=== PATIENT | male | born 1965 | race Caucasian/White ===

== ENCOUNTER 2018-01-05 21:52 | Inpatient (IN) ==
--- NOTE | 2018-01-05 22:14 | CT ---
EXAM DATE: 01/05/2018 10:09 PM EST AGE/SEX: 52 years / Male INDICATIONS: Stroke Alert. CLINICAL DATA: This is the patient's initial encounter. Patient reports that signs and symptoms have been present for 1 day and indicates a pain score of 0/10. MEDICAL/SURGICAL HISTORY: Cerebrovascular disease. Non-responsive. RADIATION DOSE: 56.55 CTDI (mGy) COMPARISON: No prior exams available for comparison. TECHNIQUE: CT of the head without contrast. Using automated exposure control and adjustment of the mA and/or kV according to patient size, radiation dose was kept as low as reasonably achievable to ob tain optimal diagnostic quality images. DICOM format image data is available electronically for revi ew and comparison. FINDINGS: Cerebrum: The ventricles are normal for age. No evidence of midline shift, mass lesion, hemorrhage or acute infarction. No extraaxial fluid collections are seen. Posterior Fossa: The cerebellum and brainstem are intact. The 4th ventricle is midline. The cerebe llopontine angle is unremarkable. Extracranial: The visualized portion of the orbits is intact. Skull: The calvaria is intact. No evidence of skull fracture. CONCLUSION: Negative stroke alert noncontrast head CT. Report called to Dr. Kan at 10:10 PM. . Electronically signed by: Justin Rosenthal MD 01/05/2018 10:12 PM EST
[2018-01-05] MEDS ORDERED: Alteplase Bolus 9 MG/9 ML Syringe IV.PUSH ONE (22:27)
[2018-01-05] MEDS ORDERED: Alteplase Drip 81 MG in Syringe/Bag 1 EACH IV.SIG ONE (22:27)
[2018-01-05] MEDS ORDERED: Sodium Chlor 0.9% Inj 100 ML IV.SIG ONE ×2 (22:31)
[2018-01-05] MEDS ORDERED: Labetalol HCl Inj 100 MG/20 ML Vial IV.PUSH PRN (22:44)
[2018-01-05] MEDS: Sod Chloride 0.9% Inj 1,000 ML IV.CONT SCH (22:45)
[2018-01-05 22:46] LABS: Baso # (Auto) 0.1 th/mm3 (0.0-0.2); Eos # (Auto) 0.3 th/mm3 (0.0-0.4); Eos % (Auto) 3.9 % (0.0-4.0); Hematocrit 50.1 % (39.0-51.0); Hemoglobin 16.8 gm/dL (13.0-17.0); Lymph # (Auto) 2.6 th/mm3 (1.0-4.8); Lymph % (Auto) 34.7 % (9.0-44.0); Mean Corpuscular HGB Conc 33.5 % (32.0-36.0); Mean Corpuscular Hemoglobin 31.1 pg (27.0-34.0); Mean Corpuscular Volume 92.7 fL (80.0-100.0); Mean Platelet Volume 9.1 fL (7.0-11.0); Mono # (Auto) 0.7 th/mm3 (0.0-0.9); Neut # (Auto) 3.9 th/mm3 (1.8-7.7); Neut % (Auto) 51.4 % (16.0-70.0); Platelet Count 182 th/mm3 (150-450); Red Blood Count 5.41 mil/mm3 (4.50-5.90); Red Cell Distribution Width 12.2 % (11.6-17.2); White Blood Count 7.6 th/mm3 (4.0-11.0)
[2018-01-05] MEDS ORDERED: Potassium Chlor 40 mEq Premix 40 MEQ/100 ML PIGGYBACK IV.SIG PRN ×2 (22:47)
[2018-01-05] MEDS ORDERED: Sodium Phosphate Inj 30 MMOL in Sodium Chlor 0.9% Inj 250 ML IV.SIG PRN (22:47)
[2018-01-05] MEDS ORDERED: Potassium Chlor 20 mEq Premix 20 MEQ/100 ML PIGGYBACK IV.SIG PRN ×2 (22:47)
[2018-01-05] MEDS ORDERED: Magnesium Sulfate Inj 2 GM in Sodium Chlor 0.9% Inj 96 ML IV.SIG PRN (22:47)
[2018-01-05] MEDS ORDERED: Potassium Phosphate 500 MG Soluble Tablet PO PRN ×2 (22:47)
[2018-01-05] MEDS ORDERED: Dextrose 50% in Water 50 ML Vial IV.PUSH PRN (22:47)
[2018-01-05] MEDS ORDERED: Bisacodyl 10 MG Supp RECTAL PRN (22:47)
[2018-01-05] MEDS ORDERED: Potassium Chloride 25 MEQ Effervescent Tablet PO PRN (22:47)
[2018-01-05] MEDS ORDERED: Potassium Phosphate Inj 30 MMOL in Sodium Chlor 0.9% Inj 250 ML IV.SIG PRN (22:47)
[2018-01-05] MEDS ORDERED: Magnesium Oxide 400 MG Tablet PO PRN (22:47)
[2018-01-05] MEDS ORDERED: Magnesium Sulfate Inj 4 GM in Sodium Chlor 0.9% Inj 92 ML IV.SIG PRN (22:47)
--- NOTE | 2018-01-05 22:47 | CT ---
EXAM DATE: 01/05/2018 10:39 PM EST AGE/SEX: 52 years / Male INDICATIONS: Stroke Alert. CLINICAL DATA: This is the patient's initial encounter. Patient reports that signs and symptoms have been present for 1 day and indicates a pain score of 0/10. MEDICAL/SURGICAL HISTORY: Cerebrovascular disease. Non-responsive. RADIATION DOSE: 42.29 CTDI (mGy) COMPARISON: No prior exams available for comparison. TECHNIQUE: Volumetric scanning was performed using a multi-row detector CT scanner during bolus infu yuniel of 73 ml Visipaque 320 (iodixanol) nonionic water-soluble contrast as a cumulative dose for mul tiple exams. The data was post processed with a variety of visualization algorithms including full volume maximum intensity projection, multi-planar sliding thin slab reformation, curved planar reform ation, and surface rendering techniques. Using automated exposure control and adjustment of the mA a nd/or kV according to patient size, radiation dose was kept as low as reasonably achievable to obtain optimal diagnostic quality images. DICOM format image data is available electronically for review a nd comparison. FINDINGS: There is excellent visualization of the major intracranial arteries out to the second-order branch ve ssels. There is no evidence for aneurysm, acute vessel truncation or stenosis, and no evidence for v ascular malformation. The basilar artery appears of small caliber and probably congenital/development al. There are bilateral well-developed posterior communicating arteries. CONCLUSION: No acute abnormality of the intracranial arteries. . Electronically signed by: Justin Rosenthal MD 01/05/2018 10:46 PM EST
--- NOTE | 2018-01-05 22:48 | XR ---
EXAM DATE: 01/05/2018 10:44 PM EST AGE/SEX: 52 years / Male INDICATIONS: Stroke alert. CLINICAL DATA: This is the patient's initial encounter. Patient reports that signs and symptoms have been present for 1 day and indicates a pain score of Nonresponsive. MEDICAL/SURGICAL HISTORY: . Cerebrovascular disease. Non-responsive. COMPARISON: [facility], CHEST SINGLE AP, 12/26/2015. . FINDINGS: A single AP view of the chest demonstrates the lungs to be symmetrically aerated without evidence of mass, infiltrate or effusion. The cardiomediastinal contours are unremarkable. Osseous structures a re intact. CONCLUSION: No acute cardiopulmonary disease demonstrated. Electronically signed by: Justin Rosenthal MD 01/05/2018 10:46 PM EST
[2018-01-05 22:49] LABS: Chloride 105 meq/L (98-107); Potassium 3.7 meq/L (3.5-5.1); Sodium 139 meq/L (136-145)
[2018-01-05 22:52] LABS: Albumin 3.7 g/dL (3.4-5.0); Anion Gap 8 meq/L (5-15); Calcium 8.8 mg/dL (8.5-10.1); Carbon Dioxide 26.1 meq/L (21.0-32.0); Glucose,Random 112 mg/dL (74-106)
[2018-01-05 22:53] LABS: Blood Urea Nitrogen 16 mg/dL (7-18)
[2018-01-05 22:55] LABS: Alanine Aminotransferase 21 U/L (12-78); Aspartate Aminotransferase 14 U/L (15-37)
[2018-01-05 22:56] LABS: Glomerular Filtration Rate 58 mL/min (>89)
[2018-01-05 22:57] LABS: Total Protein 7.2 g/dL (6.4-8.2)
[2018-01-05 22:58] LABS: Alkaline Phosphatase 26 U/L (45-117)
--- NOTE | 2018-01-05 22:58 | ED ---
HPI General Chief complaint: Stroke Alert Stated complaint: Stroke Time Seen by Provider: 01/05/18 21:57 Source: EMS Limitations: other History of Present Illness HPI narrative: 52yo M with lupus, ?parkinson's, CVA with left sided residual weakness here as stroke alert. As per , an hour prior to arrival, pt was normal. Pt has been feeling bad all day but yelled out her name and she ran to him in the shower and found that he was having difficulty speaking. Said he had left facial droop. Pt has weakness in bilateral extremities. Related Data Allergies Allergy/AdvReac Type Severity Reaction Status Date / Time azithromycin Allergy Severe HIVES/SYNCO Verified 01/05/18 22:44 PE blue dye Allergy Severe NAUSEA/VOMI Verified 01/05/18 22:44 TING ciprofloxacin Allergy Severe Anaphylaxis Verified 01/05/18 22:44 esomeprazole Allergy Severe Hives Verified 01/05/18 22:44 FD and C yellow no.6 (sunset Allergy Severe NAUSEA/VOMI Verified 01/05/18 22:44 yellow TING levofloxacin Allergy Severe Hives Verified 01/05/18 22:44 prochlorperazine Allergy Severe Anaphylaxis Verified 01/05/18 22:44 Review of Systems ROS: all other systems reviewed are negative [facility] Family History Family History Other Family history non-contributory Social History Social History Substance History: No History of Abuse Second Hand Smoke Exposure: Yes Smoking Status: Current every day smoker Tobacco Type: Cigarettes How Often Do You Have a Drink Containing Alcohol: Never Recent Travel in [facility] within the Last 8 Weeks: No Recent Out of Country Travel within the Last 8 Weeks: No Exam Narrative Exam Narrative: GENERAL: 52yo M in moderate distress. SKIN: Focused skin assessment warm/dry. HEAD: Atraumatic. Normocephalic. EYES: Pupils equal and round. No scleral icterus. No injection or drainage. ENT: No nasal bleeding or discharge. Mucous membranes pink and moist. NECK: Trachea midline. No JVD. CARDIOVASCULAR: Regular rate and rhythm. No murmur appreciated. RESPIRATORY: No accessory muscle use. Clear to auscultation. Breath sounds equal bilaterally. GASTROINTESTINAL: Abdomen soft, non-tender, nondistended. MUSCULOSKELETAL: No obvious deformities. No clubbing. No cyanosis. No edema. NEUROLOGICAL: Awake and alert. +Dysphasia and aphasia. Left side is still weaker than right. NIH stroke scale 13. Course Initial Documented Vital Signs Pulse Rate 82 01/05/18 21:57 Pulse Oximetry 97 01/05/18 21:57 Last Documented Vital Signs Temperature 98.0 F 01/06/18 03:00 Pulse Rate 60 01/06/18 04:00 Respiratory Rate 19 01/06/18 04:00 Blood Pressure 159/92 H 01/06/18 03:44 Pulse Oximetry 98 01/06/18 04:00 Critical Care Time Critical Care Time: Yes Total Critical Care Time: 40 Attestation: Aggregate critical care time was 40 minutes. Time to perform other separately billable procedures was not included in the critical care time. My time did not include minutes spent treating any other patients simultaneously or on activities that did not directly contribute to the patient's treatment. The services I provided to this patient were to treat and/or prevent clinically significant deterioration that could result in: cardiovascular collapse or . I provided critical care services requiring my management, as noted below: Chart data review, documentation time, medication orders and management, vital sign assessments/reviewing monitor data, ordering and reviewing lab tests, ordering and interpreting/reviewing x-rays and diagnostic studies, care of the patient and discussion of the patient with the admitting physicians. NIH Stroke Scale NIHSS Time Completed NIHSS Time Completed: 21:57 NIH Stroke Scale Level of Consciousness: 0-Alert Orientation Questions: 1-One task correct Responds to Commands: 0-Both tasks correct Gaze Eye Movement: 0-Horizontal movement WNL Visual Fernandez: 0-No visual field defect Facial Movement: 0-Normal Motor Functions Arm LEFT: 2-Falls before 10 seconds Motor Functions Arm RIGHT: 2-Falls before 10 seconds Motor Functions Leg LEFT: 2-Falls before 5 seconds Motor Functions Leg RIGHT: 1-Drift before 5 seconds Limb Ataxia: 1-Ataxia in one limb Sensory Loss: 0-No sensory loss Best Language: 2-Severe aphasia Articulation: 2-Severe dysarthria Extinction or Inattention Sensory: 0-Absent Total: 13 Medical Decision Making MDM Narrative Medical decision making narrative: 52yo M here as stroke alert. Pt with dysphagia and aphasia. NIH stroke 13 on arrival. Pt immediately transported to CT scan and CTA head and neck ordered as well. Dr. Valiente used teleneuro and evaluated patient. CT brain negative. TPA initiated. Discussed with Dr. Deras who is electrical engineering drafting officer and pt will be transferred to the [facility]. Labs reviewed, no leukocytosis. H/H normal. TSH normal. Troponin negative. BMP unremarkable. CTA neck showed no acute abnormalities. CTA head showed no acute abnormality. CXR negative. Pt reevaluated at bedside after TPA bolus and is doing well. Pt's speech is more clear now and able to speak in sentences. Still with left residual weakness but right sided weakness improved. Pt transferred to [facility] in stable condition. Medical Screen Exam Complete: Yes Emergency Medical Condition: Yes Differential Diagnosis Differential Diagnosis: CVA vs. anxiety Lab Data Result diagrams: 01/05/18 21:55 01/05/18 21:55 Lab Results 01/05/18 01/05/18 01/05/18 Range/Units 21:55 21:55 21:55 CBC w Diff Auto diff final WBC 7.6 (4.0-11.0) th/mm3 RBC 5.41 (4.50-5.90) mil/mm3 Hgb 16.8 (13.0-17.0) gm/dL Hct 50.1 (39.0-51.0) % MCV 92.7 (80.0-100.0) fL MCH 31.1 (27.0-34.0) pg MCHC 33.5 (32.0-36.0) % RDW 12.2 (11.6-17.2) % Plt Count 182 (150-450) th/mm3 MPV 9.1 (7.0-11.0) fL Neut % (Auto) 51.4 (16.0-70.0) % Lymph % (Auto) 34.7 (9.0-44.0) % [place] % (Auto) 9.0 H (0.0-8.0) % Eos % (Auto) 3.9 (0.0-4.0) % Baso % (Auto) 1.0 (0.0-2.0) % Neut # (Auto) 3.9 (1.8-7.7) th/mm3 Lymph # (Auto) 2.6 (1.0-4.8) th/mm3 [place] # (Auto) 0.7 (0.0-0.9) th/mm3 Eos # (Auto) 0.3 (0.0-0.4) th/mm3 Baso # (Auto) 0.1 (0.0-0.2) th/mm3 WBC Differential . Differential Comment . ESR (0-20) mm/hr PT 11.0 (9.8-11.6) sec INR 1.1 Ratio APTT 32.0 H (23.4-31.7) sec Sodium 139 (136-145) meq/L Potassium 3.7 (3.5-5.1) meq/L Chloride 105 (98-107) meq/L Carbon Dioxide 26.1 (21.0-32.0) meq/L Anion Gap 8 (5-15) meq/L BUN 16 (7-18) mg/dL Creatinine 1.30 (0.60-1.30) mg/dL Estimated GFR 58 L (>89) mL/min POC Glucose (68-110) mg/dl Random Glucose 112 H (74-106) mg/dL Calcium 8.8 (8.5-10.1) mg/dL Total Bilirubin 0.5 (0.2-1.0) mg/dL AST 14 L (15-37) U/L ALT 21 (12-78) U/L Alkaline Phosphatase 26 L (45-117) U/L Ammonia (11-32) mcmol/L Troponin I Less than 0.02 L (0.02-0.05) ng/mL Total Protein 7.2 (6.4-8.2) g/dL Albumin 3.7 (3.4-5.0) g/dL TSH (0.358-3.740) uIU/mL Urine Color (Yellw/Straw) Urine Clarity (Clear) Urine pH (5.0-8.5) Ur Specific [place] (1.002-1.035) Urine Protein (Neg-Trace) mg/dL Urine Glucose (UA) (Negative) mg/dL Urine Ketones (Negative) mg/dL Urine Occult Blood (Negative) Urine Nitrate (Negative) Urine Bilirubin (Negative) Urine Urobilinogen (Less than 2) mg/dL Ur Leukocyte Esterase (Negative) Urine RBC (0-3) /hpf Urine WBC (0-5) /hpf Ur Squamous Epith Cells (0-5) /hpf Amorphous Sediment (None) /hpf Micro UA Comment Ur Microscopic Review Urine Culture Comments Urine Opiates Screen (Neg) Ur Barbiturates Screen (Neg) Ur Amphetamines Screen (Neg) U Benzodiazepines Scrn (Neg) Urine Cocaine Screen (Neg) U Cannabinoids Screen (Neg) Blood Type Blood Type Recheck Antibody Screen 01/05/18 01/05/18 01/05/18 Range/Units 21:55 21:55 22:13 CBC w Diff WBC (4.0-11.0) th/mm3 RBC (4.50-5.90) mil/mm3 Hgb (13.0-17.0) gm/dL Hct (39.0-51.0) % MCV (80.0-100.0) fL MCH (27.0-34.0) pg MCHC (32.0-36.0) % RDW (11.6-17.2) % Plt Count (150-450) th/mm3 MPV (7.0-11.0) fL Neut % (Auto) (16.0-70.0) % Lymph % (Auto) (9.0-44.0) % [place] % (Auto) (0.0-8.0) % Eos % (Auto) (0.0-4.0) % Baso % (Auto) (0.0-2.0) % Neut # (Auto) (1.8-7.7) th/mm3 Lymph # (Auto) (1.0-4.8) th/mm3 [place] # (Auto) (0.0-0.9) th/mm3 Eos # (Auto) (0.0-0.4) th/mm3 Baso # (Auto) (0.0-0.2) th/mm3 WBC Differential Differential Comment ESR 3 (0-20) mm/hr PT (9.8-11.6) sec INR Ratio APTT (23.4-31.7) sec Sodium (136-145) meq/L Potassium (3.5-5.1) meq/L Chloride (98-107) meq/L Carbon Dioxide (21.0-32.0) meq/L Anion Gap (5-15) meq/L BUN (7-18) mg/dL Creatinine (0.60-1.30) mg/dL Estimated GFR (>89) mL/min POC Glucose (68-110) mg/dl Random Glucose (74-106) mg/dL Calcium (8.5-10.1) mg/dL Total Bilirubin (0.2-1.0) mg/dL AST (15-37) U/L ALT (12-78) U/L Alkaline Phosphatase (45-117) U/L Ammonia (11-32) mcmol/L Troponin I (0.02-0.05) ng/mL Total Protein (6.4-8.2) g/dL Albumin (3.4-5.0) g/dL TSH 0.760 (0.358-3.740) uIU/mL Urine Color (Yellw/Straw) Urine Clarity (Clear) Urine pH (5.0-8.5) Ur Specific [place] (1.002-1.035) Urine Protein (Neg-Trace) mg/dL Urine Glucose (UA) (Negative) mg/dL Urine Ketones (Negative) mg/dL Urine Occult Blood (Negative) Urine Nitrate (Negative) Urine Bilirubin (Negative) Urine Urobilinogen (Less than 2) mg/dL Ur Leukocyte Esterase (Negative) Urine RBC (0-3) /hpf Urine WBC (0-5) /hpf Ur Squamous Epith Cells (0-5) /hpf Amorphous Sediment (None) /hpf Micro UA Comment Ur Microscopic Review Urine Culture Comments Urine Opiates Screen (Neg) Ur Barbiturates Screen (Neg) Ur Amphetamines Screen (Neg) U Benzodiazepines Scrn (Neg) Urine Cocaine Screen (Neg) U Cannabinoids Screen (Neg) Blood Type A Positive Blood Type Recheck Required Antibody Screen Negative 01/05/18 01/05/18 01/06/18 Range/Units 22:37 23:05 00:50 CBC w Diff WBC (4.0-11.0) th/mm3 RBC (4.50-5.90) mil/mm3 Hgb (13.0-17.0) gm/dL Hct (39.0-51.0) % MCV (80.0-100.0) fL MCH (27.0-34.0) pg MCHC (32.0-36.0) % RDW (11.6-17.2) % Plt Count (150-450) th/mm3 MPV (7.0-11.0) fL Neut % (Auto) (16.0-70.0) % Lymph % (Auto) (9.0-44.0) % [place] % (Auto) (0.0-8.0) % Eos % (Auto) (0.0-4.0) % Baso % (Auto) (0.0-2.0) % Neut # (Auto) (1.8-7.7) th/mm3 Lymph # (Auto) (1.0-4.8) th/mm3 [place] # (Auto) (0.0-0.9) th/mm3 Eos # (Auto) (0.0-0.4) th/mm3 Baso # (Auto) (0.0-0.2) th/mm3 WBC Differential Differential Comment ESR (0-20) mm/hr PT (9.8-11.6) sec INR Ratio APTT (23.4-31.7) sec Sodium (136-145) meq/L Potassium (3.5-5.1) meq/L Chloride (98-107) meq/L Carbon Dioxide (21.0-32.0) meq/L Anion Gap (5-15) meq/L BUN (7-18) mg/dL Creatinine (0.60-1.30) mg/dL Estimated GFR (>89) mL/min POC Glucose 96 (68-110) mg/dl Random Glucose (74-106) mg/dL Calcium (8.5-10.1) mg/dL Total Bilirubin (0.2-1.0) mg/dL AST (15-37) U/L ALT (12-78) U/L Alkaline Phosphatase (45-117) U/L Ammonia 36 H (11-32) mcmol/L Troponin I (0.02-0.05) ng/mL Total Protein (6.4-8.2) g/dL Albumin (3.4-5.0) g/dL TSH (0.358-3.740) uIU/mL Urine Color (Yellw/Straw) Urine Clarity (Clear) Urine pH (5.0-8.5) Ur Specific [place] (1.002-1.035) Urine Protein (Neg-Trace) mg/dL Urine Glucose (UA) (Negative) mg/dL Urine Ketones (Negative) mg/dL Urine Occult Blood (Negative) Urine Nitrate (Negative) Urine Bilirubin (Negative) Urine Urobilinogen (Less than 2) mg/dL Ur Leukocyte Esterase (Negative) Urine RBC (0-3) /hpf Urine WBC (0-5) /hpf Ur Squamous Epith Cells (0-5) /hpf Amorphous Sediment (None) /hpf Micro UA Comment Ur Microscopic Review Urine Culture Comments Urine Opiates Screen Neg (Neg) Ur Barbiturates Screen Neg (Neg) Ur Amphetamines Screen Neg (Neg) U Benzodiazepines Scrn Pos H (Neg) Urine Cocaine Screen Neg (Neg) U Cannabinoids Screen Neg (Neg) Blood Type Blood Type Recheck Antibody Screen 01/06/18 Range/Units 00:50 CBC w Diff WBC (4.0-11.0) th/mm3 RBC (4.50-5.90) mil/mm3 Hgb (13.0-17.0) gm/dL Hct (39.0-51.0) % MCV (80.0-100.0) fL MCH (27.0-34.0) pg MCHC (32.0-36.0) % RDW (11.6-17.2) % Plt Count (150-450) th/mm3 MPV (7.0-11.0) fL Neut % (Auto) (16.0-70.0) % Lymph % (Auto) (9.0-44.0) % [place] % (Auto) (0.0-8.0) % Eos % (Auto) (0.0-4.0) % Baso % (Auto) (0.0-2.0) % Neut # (Auto) (1.8-7.7) th/mm3 Lymph # (Auto) (1.0-4.8) th/mm3 [place] # (Auto) (0.0-0.9) th/mm3 Eos # (Auto) (0.0-0.4) th/mm3 Baso # (Auto) (0.0-0.2) th/mm3 WBC Differential Differential Comment ESR (0-20) mm/hr PT (9.8-11.6) sec INR Ratio APTT (23.4-31.7) sec Sodium (136-145) meq/L Potassium (3.5-5.1) meq/L Chloride (98-107) meq/L Carbon Dioxide (21.0-32.0) meq/L Anion Gap (5-15) meq/L BUN (7-18) mg/dL Creatinine (0.60-1.30) mg/dL Estimated GFR (>89) mL/min POC Glucose (68-110) mg/dl Random Glucose (74-106) mg/dL Calcium (8.5-10.1) mg/dL Total Bilirubin (0.2-1.0) mg/dL AST (15-37) U/L ALT (12-78) U/L Alkaline Phosphatase (45-117) U/L Ammonia (11-32) mcmol/L Troponin I (0.02-0.05) ng/mL Total Protein (6.4-8.2) g/dL Albumin (3.4-5.0) g/dL TSH (0.358-3.740) uIU/mL Urine Color Yellow (Yellw/Straw) Urine Clarity Slightly cloudy (Clear) Urine pH 8.0 (5.0-8.5) Ur Specific [place] Less/equal 1.005 (1.002-1.035) Urine Protein Negative (Neg-Trace) mg/dL Urine Glucose (UA) Negative (Negative) mg/dL Urine Ketones Negative (Negative) mg/dL Urine Occult Blood Trace (Negative) Urine Nitrate Negative (Negative) Urine Bilirubin Negative (Negative) Urine Urobilinogen 1.0 (Less than 2) mg/dL Ur Leukocyte Esterase Negative (Negative) Urine RBC 4-15 H (0-3) /hpf Urine WBC 0-5 (0-5) /hpf Ur Squamous Epith Cells 0-5 (0-5) /hpf Amorphous Sediment Moderate H (None) /hpf Micro UA Comment Culture not ind Ur Microscopic Review Microscopic reviewed Urine Culture Comments Culture not ind Urine Opiates Screen (Neg) Ur Barbiturates Screen (Neg) Ur Amphetamines Screen (Neg) U Benzodiazepines Scrn (Neg) Urine Cocaine Screen (Neg) U Cannabinoids Screen (Neg) Blood Type Blood Type Recheck Antibody Screen Imaging Data Radiologist's impression: Chest X-Ray 01/05/18 21:57 CONCLUSION: No acute cardiopulmonary disease demonstrated. Head CT 01/05/18 21:57 CONCLUSION: Negative stroke alert noncontrast head CT. Report called to Dr. Kan at 10:10 PM. . Head CTA 01/05/18 21:57 CONCLUSION: No acute abnormality of the intracranial arteries. . Neck CTA 01/05/18 21:57 CONCLUSION: No acute abnormalities of the carotid or vertebral systems on either side. Trace atherosclerotic plaque of the right carotid bifurcation without narrowing. Head MRI 01/06/18 22:41 CONCLUSION: 1. No acute findings. No recent infarct identified. ECG Data EKG Prior to Arrival: No Attestation: I personally reviewed and interpreted this ECG as follows: Interpretation: NSR 65bpm. Normal axis. No significant ST elevation or depression. Discharge Plan Discharge Disposition Patient Disposition: 30 Still Patient Discharge Details Diagnosis: CVA (cerebrovascular accident) Physicians Team ED Provider: Lucy Kan Primary Care Provider: Liza Colón Attending Provider: Mitch Deras Other Providers: Hector Valiente Status ED Status: Left Department Discharge Information Discharge Date/Time: 01/06/18 02:23
[2018-01-05 23:02] LABS: INR 1.1 Ratio
--- NOTE | 2018-01-05 23:02 | CT ---
EXAM DATE: 01/05/2018 10:57 PM EST AGE/SEX: 52 years / Male INDICATIONS: Stroke Alert. CLINICAL DATA: This is the patient's initial encounter. Patient reports that signs and symptoms have been present for 1 day and indicates a pain score of 0/10. MEDICAL/SURGICAL HISTORY: Cerebrovascular disease. Non-responsive. RADIATION DOSE: 42.29 CTDI (mGy) ; Combined studies COMPARISON: No prior exams available for comparison. TECHNIQUE: Volumetric scanning was performed using a multirow detector CT scanner during bolus infus ion of 73 ml Visipaque 320 (iodixanol) nonionic water-soluble contrast as a cumulative dose for mult iple exams. The data was postprocessed with a variety of visualization algorithms including full-vo lume maximum intensity projection, multiplanar sliding thin-slab reformation, curved-planar reformati on, and surface-rendering techniques. Using automated exposure control and adjustment of the mA and/ or kV according to patient size, radiation dose was kept as low as reasonably achievable to obtain op timal diagnostic quality images. DICOM format image data is available electronically for review and comparison. Percent stenosis is calculated using the diameter of the stenotic region over the diameter of the nor mal distal internal carotid artery. FINDINGS: Aortic Arch: There is a three-vessel origin of the great vessels from the aorta. No evidence of ost ial narrowing Right Carotid: The common carotid artery is intact. Slight atherosclerosis of the bulb and proximal internal carotid artery without narrowing. The carotid bulb otherwise has a normal configuration wit hout ulceration or narrowing. The internal carotid artery lumen is otherwise smooth without stenosis . The external carotid artery is intact. Left Carotid: The common carotid artery is intact. The carotid bulb has a normal configuration with out ulceration or narrowing. The internal carotid artery lumen is smooth without stenosis. The exte rnal carotid artery is intact. Vertebrals: The vertebral arteries have a symmetric diameter. No stenotic lesions are seen. CONCLUSION: No acute abnormalities of the carotid or vertebral systems on either side. Trace atherosc lerotic plaque of the right carotid bifurcation without narrowing. Electronically signed by: Justin Rosenthal MD 01/05/2018 11:01 PM EST
[2018-01-06] MEDS ORDERED: Gadobutrol PF 10 MMOL/10 ML Vial (for RAD) IV.SIG ONE (00:22)
--- NOTE | 2018-01-06 00:42 | MR ---
EXAM DATE: 01/06/2018 12:33 AM EST AGE/SEX: 52 years / Male INDICATIONS: CVA. Left sided weakness and slurred speech for one day. CLINICAL DATA: This is the patient's initial encounter. Patient reports that signs and symptoms have been present for 1 day and indicates a pain score of 6/10. MEDICAL/SURGICAL HISTORY: Stroke. Parkinson's disease. Lupus. Cholecystectomy. COMPARISON: No prior exams available for comparison. TECHNIQUE: Multiplanar, multisequence examination of the brain was performed without and with 10 ml G adavist (gadobutrol) contrast as a single exam dose. FINDINGS: No intracranial mass or midline shift. No hydrocephalus. No abnormal extra-axial fluid collections. There is no evidence for recent infarction on the diffusion weighted images. No sellar mass. No abnor mal enhancing lesions are seen postcontrast. CONCLUSION: 1. No acute findings. No recent infarct identified. Electronically signed by: Geoffrey Kennedy MD 01/06/2018 12:41 AM EST
[2018-01-06 01:18] LABS: Bilirubin,Urine Negative (Negative); Clarity,Urine Slightly Cloudy (Clear); Color,Urine Yellow (Yellw/Straw); Glucose,Urine (UA) Negative (Negative); Leukocyte Esterase,Urine Negative (Negative); Nitrite,Urine Negative (Negative); Specific Gravity,Urine Less/Equal 1.005 (1.002-1.035)
[2018-01-06 01:26] LABS: Amphetamine Screen,Urine Neg (Neg); Barbiturate Screen,Urine Neg (Neg); Cannabinoid Screen,Urine Neg (Neg); Cocaine Screen,Urine Neg (Neg)
[2018-01-06 01:27] LABS: Amorphous Sediment,Urine Moderate /hpf; Squamous Epithelial Cell,Urine 0-5 /hpf (0-5); WBC,Urine 0-5 /hpf (0-5)
[2018-01-06 01:28] LABS: Opiate Screen,Urine Neg (Neg)
--- NOTE | 2018-01-06 02:37 | MB ---
cc: Hector Valiente MD DATE: 01/05/2018 HISTORY OF PRESENT ILLNESS: This is a 52-year-old right-handed man with lupus affecting the skin, a stroke about a year ago, some left-sided weakness, some multiple system atrophy, who just retired from work about 2 weeks ago and takes Sinemet twice a day. He takes a baby aspirin a day. He was ambulating independently, felt generally poorly for a few days. When they went in to take a shower, his walked him to take a shower and then she left and heard him yell. She came back and he said he was short of breath and had trouble breathing. He had a left facial droop, slurred speech. He has a history of some mild weakness on the left side from an old stroke, but he has been working through it. He usually walks independently. He came in and was called for Stroke Alert. REVIEW OF SYSTEMS: According to his , no hypertension, diabetes, or hypercholesterolemia. No CT, CABG, stent, angioplasty, AFib, or Coumadin. No history of renal, hepatic or pulmonary disease, thyroid disease, ulcer, cancer, or seizure. SOCIAL HISTORY: He is a smoker, not a drinker. Lives with his . FAMILY HISTORY: Positive for cancer in his father. Negative for seizure or stroke. MEDICATIONS: He does take an aspirin a day. He is not on any other blood thinners. He is on Sinemet. He takes gabapentin. He was recently started on Celebrex and cyclobenzaprine, but did not take those today. PHYSICAL EXAMINATION: HEART: Sinus rhythm, 150/80. NEUROLOGIC: He is awake and alert. His speech is very dysarthric, somewhat garbled. He can say hello and goodbye. He can follow some commands. He can show me his right thumb. His visual rios are full. Face moves symmetrically. Tongue was midline. He has got a tremor on his chin, which is unusual for him according to his . Speech is somewhat halting. He can hold both of his arms off the bed, but they both drift down more so on the left than the right. Same thing with the legs. Sensation is hard to tell. NIH stroke scale 10. LABORATORY DATA: CAT scan of the brain is negative. Glucose is 100. IMPRESSION: Looks like he may have had another stroke. We will go ahead and give him TPA. His agrees to that. The CTA of the neck and [place] of [place] is preliminary negative. MD FREDIS Davis/saad/maverick , 10:37 PM , 10:49 PM
[2018-01-06] MEDS ORDERED: Insulin NovoLIN Regular Correctional Sugar Inj SQ SCH (03:00)
[2018-01-06] MEDS ORDERED: Chlorhexidine Gluconate 2% 1 Pack (2 Cloths) TOPICAL PRN (04:00)
--- NOTE | 2018-01-06 04:13 | P.HPCC ---
History of Present Illness Service: Critical care medicine Primary Care Physician: Liza Colón MD Chief Complaint: weakness History of Present Illness: 52yM with lupus and ?parkinson's with recent documented history of CVA presented to [place] [facility] department with new-onset difficulty speaking and facial droop. last-seen normal time was reportedly 1 hour prior to arrival at the ER. NIHSS in the ER on admission was 13. CT head was negative for acute hemorrhage. Case was discussed between ER physician and Dr. Valiente and decision made to proceed with iv systemic TPA. CTA head/neck negative for acute thromboembolism. MRI negative for ischemia. ER physician discussed the case with me at 22:42 on 01/05 and I agreed to accept the patient in transfer emergently to [facility] ICU for higher level of care at a comprehensive stroke center. I evaluated the patient immediately upon arrival to the ICU at 02:59 on 01/06. His NIHSS is 5 on our initial assessment. He endorses mild chest tightness. his voice is weak, but does not appear dysarthric. he endorses fatigue. He presents here with his , who assists him in the HPI. The patient denied fever, chills, but the states she thinks he had a fever, but she did not check his temperature. He denies n/v/c/d or abd pain. denies shortness of breath. endorses burning of the soles of his feet, which is not new , and has been worsening for the past few weeks. His orthopedic doctor recently started him on gabapentin 100mg po TID for this pain. He recently had a work- related back injury, and he feels like the back pain, and head pain are from this and worsening. The remainder of the ROS is negative. Inpatient Certification: I certify that the inpatient services were ordered in accordance with Medicare regulations governing the order. This includes certification that hospital inpatient services are reasonable and necessary and in the case of services not specified as inpatient-only under 42 CFR 419.22(n), that they are appropriately provided as inpatient services in accordance to with the 2-midnight benchmark under 43 CFR 412.3(e) Estimated Total Length of Stay (Days): 4 Plans for Post Hospital Care: Not yet determined Review of Systems unobtainable due to mental status PMFSH - History History Provided By: Patient, Family Member, Medical Record - Medical History Medical History: Medical History (Last Reviewed 01/06/18 @ 04:03 by Mitch Deras MD) History of CVA with residual deficit Hx of Parkinson's disease - Family History Family History: Family History (Last Updated 01/06/18 @ 04:03 by Mitch Deras MD) Other Family history non-contributory - Social History I have reviewed the patient's Social History: Yes - Tobacco History Second Hand Smoke Exposure: Yes Tobacco Use In Past 30 Days: Yes Smoking Status: Current every day smoker Tobacco Type: Cigarettes - Alcohol History How Often Do You Have a Drink Containing Alcohol: Never - Substance Use History Substance History: No History of Abuse - Travel History Recent Travel in the [place] Within the Last 8 Weeks: No Recent Travel Out of the Country Within the Last 8 Weeks: No - Immunization History Tetanus Immunization: Unsure Medications and Allergies Active Medications: Active Medications Albuterol (Duoneb Neb (Prn)) 1 ampul NEB Q2HR NEB PRN PRN Reason: WHEEZING Last Admin: 01/05/18 23:08 Dose: 1 ampul Atorvastatin Calcium (Lipitor) 80 mg PO DAILY VALERIO Bisacodyl (Dulcolax Supp) 10 mg RECTAL DAILY PRN PRN Reason: if no BM in last 24h Chlorhexidine Gluconate (Chlorhexidine 2% Cloth) 3 pack TOPICAL DAILY@0400 VALERIO Stop: 01/11/18 03:59 Chlorhexidine Gluconate (Chlorhexidine 2% Cloth) 3 pack TOPICAL DAILY@0400 PRN PRN Reason: Extra cloth needed Stop: 01/11/18 03:59 Dextrose (D50w Vial) 50 ml IV.PUSH UNSCH PRN PRN Reason: PER HYPOGLYCEMIA PROTOCOL Famotidine (Pepcid) 20 mg PO BID [facility] Glucagon (Glucagon Inj) 1 mg OTHER PRN PRN PRN Reason: for Hypoglycemia Protocol Hydralazine HCl (Apresoline Inj) 10 mg IV.PUSH Q30M PRN PRN Reason: sbp > 180 Sodium Chloride (Ns Inj) 1,000 mls @ 70 mls/hr IV.CONT .[id number] [facility] Last Admin: 01/05/18 22:45 Dose: 70 mls/hr Magnesium Sulfate 4 gm/ Sodium (Chloride) 100 mls @ 50 mls/hr IV.SIG UNSCH PRN PRN Reason: For Magnesium 0.9 - 1.1 mg/dL Magnesium Sulfate 2 gm/ Sodium (Chloride) 100 mls @ 50 mls/hr IV.SIG UNSCH PRN PRN Reason: For Magnesium 1.2 - 1.6 mg/dL Potassium Chloride (Kcl 40 Meq Premix Inj) 40 meq in 100 mls @ 25 mls/hr IV.SIG Q2H PRN PRN Reason: For Potassium 2.8 - 3.2 mEq/L Potassium Chloride (Kcl 20 Meq Premix Inj) 20 meq in 100 mls @ 50 mls/hr IV.SIG Q2H PRN PRN Reason: For Potassium 3.3 - 3.5 mEq/L Potassium Chloride (Kcl 40 Meq Premix Inj) 40 meq in 100 mls @ 25 mls/hr IV.SIG UNSCH PRN PRN Reason: For Potassium 3.3 - 3.5 mEq/L Potassium Chloride (Kcl 20 Meq Premix Inj) 20 meq in 100 mls @ 50 mls/hr IV.SIG Q2H PRN PRN Reason: For Potassium 2.8 - 3.2 mEq/L Potassium Phosphate 30 mmol/ (Sodium Chloride) 260 mls @ 42 mls/hr IV.SIG UNSCH PRN PRN Reason: SEE LABEL COMMENTS Sodium Phosphate 30 mmol/ (Sodium Chloride) 260 mls @ 42 mls/hr IV.SIG UNSCH PRN PRN Reason: For Phosphorus < 2.5 mg/dL Insulin Human Regular (Novolin R Correctional Sugar Inj) 0 units SQ ACHS AND 3AM VALERIO; Protocol Labetalol HCl (Trandate Inj) 10 mg IV.PUSH Q30M PRN PRN Reason: sbp > 180 Lactulose (Lactulose Liq) 30 ml PO BID VALERIO Magnesium Oxide (Mag-Ox) 800 mg PO UNSCH PRN PRN Reason: For Magnesium 1.2 - 1.6 mg/dL Ondansetron HCl (Zofran Inj) 4 mg IV.PUSH Q6H PRN PRN Reason: NAUSEA OR VOMITING Polyethylene Glycol (Miralax) 17 gm PO BID VALERIO Potassium Bicarb/Potassium Chloride (K-Lyte Cl Eff) 50 meq PO UNSCH PRN PRN Reason: For Potassium 3.3 - 3.5 mEq/L Potassium Phosphate (K-Phos Original) 2,000 mg PO Q4H PRN PRN Reason: Phosphorus Less Than 2.5 mg/dL Potassium Phosphate (K-Phos Original) 2,000 mg PO UNSCH PRN PRN Reason: SEE LABEL COMMENTS Senna/Docusate Sodium (Asia-Colace) 1 tab PO BID VALERIO Sodium Chloride (Ns Flush) 2 ml IV.FLUSH UNSCH PRN PRN Reason: FLUSH AFTER USING IV ACCESS Allergies Allergy/AdvReac Type Severity Reaction Status Date / Time azithromycin Allergy Severe HIVES/SYNCO Verified 01/05/18 22:44 PE blue dye Allergy Severe NAUSEA/VOMI Verified 01/05/18 22:44 TING ciprofloxacin Allergy Severe Anaphylaxis Verified 01/05/18 22:44 esomeprazole Allergy Severe Hives Verified 01/05/18 22:44 FD and C yellow no.6 (sunset Allergy Severe NAUSEA/VOMI Verified 01/05/18 22:44 yellow TING levofloxacin Allergy Severe Hives Verified 01/05/18 22:44 prochlorperazine Allergy Severe Anaphylaxis Verified 01/05/18 22:44 Results - Labs CBC & Chem 7: 01/05/18 21:55 01/05/18 21:55 Labs: Short CBC 01/05/18 Range/Units 21:55 WBC 7.6 (4.0-11.0) th/mm3 Hgb 16.8 (13.0-17.0) gm/dL Hct 50.1 (39.0-51.0) % Plt Count 182 (150-450) th/mm3 BMP 01/05/18 21:55 Sodium 139 Potassium 3.7 Chloride 105 Carbon Dioxide 26.1 BUN 16 Creatinine 1.30 Calcium 8.8 Cardiac Enzymes 01/05/18 Range/Units 21:55 Troponin I Less than 0.02 L (0.02-0.05) ng/mL Liver Function 01/05/18 Range/Units 21:55 Total Bilirubin 0.5 (0.2-1.0) mg/dL AST 14 L (15-37) U/L ALT 21 (12-78) U/L Alkaline Phosphatase 26 L (45-117) U/L Albumin 3.7 (3.4-5.0) g/dL Urine 01/06/18 Range/Units 00:50 Urine Color Yellow (Yellw/Straw) Urine Clarity Slightly cloudy (Clear) Urine pH 8.0 (5.0-8.5) Ur Specific [place] Less/equal 1.005 (1.002-1.035) Urine Protein Negative (Neg-Trace) mg/dL Urine Glucose (UA) Negative (Negative) mg/dL - Imaging Impressions Chest X-Ray 01/05/18 21:57 CONCLUSION: No acute cardiopulmonary disease demonstrated. Head CT 01/05/18 21:57 CONCLUSION: Negative stroke alert noncontrast head CT. Report called to Dr. Kan at 10:10 PM. . Head CTA 01/05/18 21:57 CONCLUSION: No acute abnormality of the intracranial arteries. . Neck CTA 01/05/18 21:57 CONCLUSION: No acute abnormalities of the carotid or vertebral systems on either side. Trace atherosclerotic plaque of the right carotid bifurcation without narrowing. Head MRI 01/06/18 22:41 CONCLUSION: 1. No acute findings. No recent infarct identified. Exam Vital signs: Vital Signs 01/05/18 21:57 01/05/18 22:11 01/05/18 22:30 Temperature 36.7 C Pulse Rate 82 82 Respiratory Rate 18 Blood Pressure 171/95 H Pulse Oximetry 97 94 L 96 01/05/18 23:05 01/05/18 23:08 01/05/18 23:09 Temperature Pulse Rate 64 65 Respiratory Rate 18 18 Blood Pressure 155/86 H Pulse Oximetry 97 97 01/06/18 01:10 01/06/18 02:02 01/06/18 02:21 Temperature Pulse Rate 72 68 70 Respiratory Rate 18 18 18 Blood Pressure 163/88 H 166/85 H 161/76 H Pulse Oximetry 98 98 97 Intake & Output 01/05/18 01/05/18 01/06/18 06:59 18:59 06:59 Intake Total 281 / 281 Balance 281 / 281 Weight 103.1 kg Intake: IV 281 / 281 Activase Drip 81 MG In Bag/ / Syringe 1 EACH @ 81 mls/hr IV. SIG ONCE ONE Rx#:[id number] NS Inj 100 ML @ Wide Open IV. 200 / 200 SIG BOLUS ONE Rx#:[id number] Narrative: GENERAL: Middle-age male, lying in bed, in distress due to his neuro deficits HEENT: Normocephalic. Atraumatic. Pupils 3 mm, equal, round, reactive, conjugate. Mucous membranes are moist. Malar rash evident. NECK: Trachea is midline. There is no JVD. CHEST: Equal chest rise. Room air. Unlabored. CARDIOVASCULAR: Normal rate, regular rhythm. Sinus. Blood pressure is 160s systolic on my evaluation. ABDOMEN: Soft, nontender, nondistended. No guarding. MUSCULOSKELETAL: Pulses 2+. No peripheral edema. NEUROLOGICAL: RASS 0. CAM -. Follows commands in all 4 extremities. sensation grossly intact. CN 2-12 grossly intact. generalized weakness which appears to have a volitional component to it. WAI 4+/5 RUE/RLE, WAI 4/5 LUE/LLE. no clonus. speech is quiet and difficult to understand, but not dysarthric. receptive and expressive language intact. Caprini VTE Risk Assessment Caprini VTE Risk Assessment: Moderate/High Risk (score >= 2) VTE Pharmacological Exception Reason: High risk for bleeding Caprini Risk Assessment Model: Point Value = 1 Point Value = 2 Point Value = 3 Point Value = 5 Age 41-60 Minor surgery BMI > 25 kg/m2 Swollen legs Varicose veins or History of unexplained or recurrent spontaneous Oral contraceptives or hormone replacement Sepsis (< 1 month) Serious lung disease, including pneumonia (< 1 month) Abnormal pulmonary function Acute myocardial infarction Congestive heart failure (< 1 month) History of inflammatory bowel disease Medical patient at bed rest Age 61-74 Arthroscopic surgery Major open surgery (> 45 min) Laparoscopic surgery (> 45 min) Malignancy Confined to bed (> 72 hours) Immobilizing plaster cast Central venous access Age >= 75 History of VTE Family history of VTE Factor V Leiden Prothrombin [id number] Lupus anticoagulant Anticardiolipin antibodies Elevated serum homocysteine Heparin-induced thrombocytopenia Other congenital or acquired thrombophilia Stroke (< 1 month) Elective arthroplasty Hip, pelvis, or leg fracture Acute spinal cord injury (< 1 month) Prophylaxis Regimen: Total Risk Factor Score Risk Level Prophylaxis Regimen 0-1 Low Early ambulation 2 Moderate Order ONE of the following: *Sequential Compression Device (SCD) *Heparin 5000 units SQ BID 3-4 Higher Order ONE of the following medications: *Heparin 5000 units SQ TID *Enoxaparin/Lovenox 40 mg SQ daily (WT < 150 kg, CrCl > 30 mL/min) *Enoxaparin/Lovenox 30 mg SQ daily (WT < 150 kg, CrCl > 10-29 mL/min) *Enoxaparin/Lovenox 30 mg SQ BID (WT < 150 kg, CrCl > 30 mL/min) AND/OR *Sequential Compression Device (SCD) 5 or more Highest Order ONE of the following medications: *Heparin 5000 units SQ TID (Preferred with Epidurals) *Enoxaparin/Lovenox 40 mg SQ daily (WT < 150 kg, CrCl > 30 mL/min) *Enoxaparin/Lovenox 30 mg SQ daily (WT < 150 kg, CrCl > 10-29 mL/min) *Enoxaparin/Lovenox 30 mg SQ BID (WT < 150 kg, CrCl > 30 mL/min) AND *Sequential Compression Device (SCD) Assessment and Plan - Assessment and Plan Plan: Assessment: 52yM with Lupus and ?parkinson's disease presents with acute fatigue , bilateral arm and leg weakness, initially concerning for CVA now s/p systemic TPA. Clearly his neurologic exam is worse than baseline, but does not appear focal at this time, although symptoms may have resolved now s/p TPA. Will keep in ICU for 24h and repeat head CT to ensure no hemorrhagic conversion. Will defer remainder of neurologic work-up to Dr. Valiente. Active Problems: Possible CVA Lupus Generalized weakness s/p systemic TPA 01/05 Peripheral neuropathy Plan: - admit to ICU - frequent neuro checks - avoid long-acting sedatives - states the gabapentin is making him "foggy"--will not restart in the setting of recent neuro changes. - nursing bedside swallow eval- advance diet as tolerated if passes - PT/OT/ST - lipid panel, a1c - start statin - neurology consulted: Dr. Valiente - goal sbp < 180 s/p TPA - interval 24h head CT - 2d echo - hold patient's home aspirin until tomorrow - holding restoril, prozac - iv pepcid (on home h2 sunny and ppi) SCDs hold pharmacologic dvt prophylaxis until 24h post TPA
[2018-01-06 05:42] LABS: Baso # (Auto) 0.1 th/mm3 (0.0-0.2); Baso % (Auto) 0.7 % (0.0-2.0); Eos # (Auto) 0.3 th/mm3 (0.0-0.4); Eos % (Auto) 2.9 % (0.0-4.0); Hematocrit 45.3 % (39.0-51.0); Hemoglobin 15.6 gm/dL (13.0-17.0); Lymph # (Auto) 2.9 th/mm3 (1.0-4.8); Lymph % (Auto) 26.8 % (9.0-44.0); Mean Corpuscular HGB Conc 34.6 % (32.0-36.0); Mean Corpuscular Hemoglobin 32.9 pg (27.0-34.0); Mean Corpuscular Volume 95.4 fL (80.0-100.0); Mean Platelet Volume 8.8 fL (7.0-11.0); Mono # (Auto) 0.8 th/mm3 (0.0-0.9); Mono % (Auto) 7.8 % (0.0-8.0); Neut # (Auto) 6.7 th/mm3 (1.8-7.7); Neut % (Auto) 61.8 % (16.0-70.0); Platelet Count 156 th/mm3 (150-450); Red Blood Count 4.75 mil/mm3 (4.50-5.90); Red Cell Distribution Width 13.4 % (11.6-17.2); White Blood Count 10.8 th/mm3 (4.0-11.0)
[2018-01-06 06:01] LABS: Anion Gap 7 meq/L (5-15); Blood Urea Nitrogen 17 mg/dL (7-18); Calcium 8.4 mg/dL (8.5-10.1); Carbon Dioxide 23.9 meq/L (21.0-32.0); Chloride 107 meq/L (98-107); Cholesterol 242 mg/dL (120-200); Glomerular Filtration Rate 87 mL/min (>89); Glucose,Random 88 mg/dL (74-106); Magnesium 2.2 mg/dL (1.5-2.5); Phosphorus 3.4 mg/dL (2.5-4.9); Potassium 3.5 meq/L (3.5-5.1); Sodium 138 meq/L (136-145); Triglycerides 262 mg/dL (42-150)
[2018-01-06 06:28] LABS: Chol/HDL Ratio 8.58 Ratio; HDL Cholesterol 28.2 mg/dL (40.0-60.0); LDL Cholesterol,Calculated 161 mg/dL (0-99); Vitamin B12 407 pg/mL (193-986)
[2018-01-06] MEDS: Insulin NovoLIN Regular Correctional Sugar Inj SQ SCH ×5 (08:12→20:52)
[2018-01-06] MEDS: Chlorhexidine Gluconate 2% 1 Pack (2 Cloths) TOPICAL SCH (08:13)
[2018-01-06] MEDS: Polyethylene Glycol 3350 17 GM Packet PO SCH ×2 (09:47→20:52)
[2018-01-06] MEDS: Senna/Docusate Sodium 8.6/50 MG Tablet PO SCH ×2 (09:54→20:32)
[2018-01-06] MEDS: Famotidine 20 MG Tablet PO SCH ×2 (09:54→20:32)
--- NOTE | 2018-01-06 11:35 | P.PNNEU ---
Subjective Subjective Comments: sr Active Medications: Active Medications Albuterol (Duoneb Neb (Prn)) 1 ampul NEB Q2HR NEB PRN PRN Reason: WHEEZING Last Admin: 01/05/18 23:08 Dose: 1 ampul Atorvastatin Calcium (Lipitor) 80 mg PO DAILY [facility] Last Admin: 01/06/18 09:54 Dose: 80 mg Bisacodyl (Dulcolax Supp) 10 mg RECTAL DAILY PRN PRN Reason: if no BM in last 24h Chlorhexidine Gluconate (Chlorhexidine 2% Cloth) 3 pack TOPICAL DAILY@0400 [facility] Stop: 01/11/18 03:59 Last Admin: 01/06/18 08:13 Dose: 3 pack Chlorhexidine Gluconate (Chlorhexidine 2% Cloth) 3 pack TOPICAL DAILY@0400 PRN PRN Reason: Extra cloth needed Stop: 01/11/18 03:59 Dextrose (D50w Vial) 50 ml IV.PUSH UNSCH PRN PRN Reason: PER HYPOGLYCEMIA PROTOCOL Famotidine (Pepcid) 20 mg PO BID [facility] Last Admin: 01/06/18 09:54 Dose: 20 mg Glucagon (Glucagon Inj) 1 mg OTHER PRN PRN PRN Reason: for Hypoglycemia Protocol Hydralazine HCl (Apresoline Inj) 10 mg IV.PUSH Q30M PRN PRN Reason: sbp > 180 Sodium Chloride (Ns Inj) 1,000 mls @ 70 mls/hr IV.CONT .[id number] [facility] Last Admin: 01/05/18 22:45 Dose: 70 mls/hr Magnesium Sulfate 4 gm/ Sodium (Chloride) 100 mls @ 50 mls/hr IV.SIG UNSCH PRN PRN Reason: For Magnesium 0.9 - 1.1 mg/dL Magnesium Sulfate 2 gm/ Sodium (Chloride) 100 mls @ 50 mls/hr IV.SIG UNSCH PRN PRN Reason: For Magnesium 1.2 - 1.6 mg/dL Potassium Chloride (Kcl 40 Meq Premix Inj) 40 meq in 100 mls @ 25 mls/hr IV.SIG Q2H PRN PRN Reason: For Potassium 2.8 - 3.2 mEq/L Potassium Chloride (Kcl 20 Meq Premix Inj) 20 meq in 100 mls @ 50 mls/hr IV.SIG Q2H PRN PRN Reason: For Potassium 3.3 - 3.5 mEq/L Potassium Chloride (Kcl 40 Meq Premix Inj) 40 meq in 100 mls @ 25 mls/hr IV.SIG UNSCH PRN PRN Reason: For Potassium 3.3 - 3.5 mEq/L Potassium Chloride (Kcl 20 Meq Premix Inj) 20 meq in 100 mls @ 50 mls/hr IV.SIG Q2H PRN PRN Reason: For Potassium 2.8 - 3.2 mEq/L Potassium Phosphate 30 mmol/ (Sodium Chloride) 260 mls @ 42 mls/hr IV.SIG UNSCH PRN PRN Reason: SEE LABEL COMMENTS Sodium Phosphate 30 mmol/ (Sodium Chloride) 260 mls @ 42 mls/hr IV.SIG UNSCH PRN PRN Reason: For Phosphorus < 2.5 mg/dL Insulin Human Regular (Novolin R Correctional Sugar Inj) 0 units SQ ACHS AND 3AM VALERIO; Protocol Last Admin: 01/06/18 08:41 Dose: Not Given Labetalol HCl (Trandate Inj) 10 mg IV.PUSH Q30M PRN PRN Reason: sbp > 180 Lactulose (Lactulose Liq) 30 ml PO BID [facility] Last Admin: 01/06/18 09:47 Dose: Not Given Magnesium Oxide (Mag-Ox) 800 mg PO UNSCH PRN PRN Reason: For Magnesium 1.2 - 1.6 mg/dL Morphine Sulfate (Morphine Inj) 2 mg IV.PUSH Q3H PRN PRN Reason: Headache pain 6-10 Ondansetron HCl (Zofran Inj) 4 mg IV.PUSH Q6H PRN PRN Reason: NAUSEA OR VOMITING Polyethylene Glycol (Miralax) 17 gm PO BID [facility] Last Admin: 01/06/18 09:47 Dose: Not Given Potassium Bicarb/Potassium Chloride (K-Lyte Cl Eff) 50 meq PO UNSCH PRN PRN Reason: For Potassium 3.3 - 3.5 mEq/L Potassium Phosphate (K-Phos Original) 2,000 mg PO Q4H PRN PRN Reason: Phosphorus Less Than 2.5 mg/dL Potassium Phosphate (K-Phos Original) 2,000 mg PO UNSCH PRN PRN Reason: SEE LABEL COMMENTS Senna/Docusate Sodium (Asia-Colace) 1 tab PO BID [facility] Last Admin: 01/06/18 09:54 Dose: 1 tab Sodium Chloride (Ns Flush) 2 ml IV.FLUSH UNSCH PRN PRN Reason: FLUSH AFTER USING IV ACCESS Allergies/Adverse Reactions: Allergies Allergy/AdvReac Type Severity Reaction Status Date / Time azithromycin Allergy Severe HIVES/SYNCO Verified 01/05/18 22:44 PE blue dye Allergy Severe NAUSEA/VOMI Verified 01/05/18 22:44 TING ciprofloxacin Allergy Severe Anaphylaxis Verified 01/05/18 22:44 esomeprazole Allergy Severe Hives Verified 01/05/18 22:44 FD and C yellow no.6 (sunset Allergy Severe NAUSEA/VOMI Verified 01/05/18 22:44 yellow TING levofloxacin Allergy Severe Hives Verified 01/05/18 22:44 prochlorperazine Allergy Severe Anaphylaxis Verified 01/05/18 22:44 Physical Exam Vital signs: Vital Signs 01/05/18 21:57 01/05/18 22:11 01/05/18 22:30 Temperature 98.1 F Pulse Rate 82 82 Respiratory Rate 18 Blood Pressure 171/95 H Pulse Oximetry 97 94 L 96 01/05/18 23:05 01/05/18 23:08 01/05/18 23:09 Temperature Pulse Rate 64 65 Respiratory Rate 18 18 Blood Pressure 155/86 H Pulse Oximetry 97 97 01/06/18 01:10 01/06/18 02:02 01/06/18 02:21 Temperature Pulse Rate 72 68 70 Respiratory Rate 18 18 18 Blood Pressure 163/88 H 166/85 H 161/76 H Pulse Oximetry 98 98 97 01/06/18 02:42 01/06/18 03:00 01/06/18 03:15 Temperature 98.0 F Pulse Rate 62 60 61 Respiratory Rate 11 L 23 26 H Blood Pressure 153/91 H 159/86 H Pulse Oximetry 97 97 97 01/06/18 03:20 01/06/18 03:30 01/06/18 03:44 Temperature Pulse Rate 62 60 62 Respiratory Rate 25 H 21 19 Blood Pressure 168/91 H 159/92 H Pulse Oximetry 97 98 96 01/06/18 03:45 01/06/18 04:00 01/06/18 04:13 Temperature Pulse Rate 70 60 65 Respiratory Rate 22 19 25 H Blood Pressure 154/86 H Pulse Oximetry 97 98 97 01/06/18 04:28 01/06/18 04:43 01/06/18 04:58 Temperature Pulse Rate 55 L 56 L 54 L Respiratory Rate 12 26 H 20 Blood Pressure 150/88 H 146/88 H 161/91 H Pulse Oximetry 99 98 97 01/06/18 05:00 01/06/18 05:13 01/06/18 05:43 Temperature Pulse Rate 58 L 55 L 54 L Respiratory Rate 21 24 25 H Blood Pressure 160/85 H 157/84 H 153/82 H Pulse Oximetry 98 98 98 01/06/18 05:58 01/06/18 06:00 01/06/18 06:28 Temperature Pulse Rate 54 L 58 L 60 Respiratory Rate 15 27 H 19 Blood Pressure 152/89 H 146/81 H 140/71 Pulse Oximetry 98 98 96 01/06/18 06:43 01/06/18 06:58 01/06/18 07:00 Temperature Pulse Rate 58 L 54 L 55 L Respiratory Rate 25 H 21 24 Blood Pressure 150/84 H 159/83 H Pulse Oximetry 98 98 99 01/06/18 07:13 01/06/18 07:15 01/06/18 07:28 Temperature Pulse Rate 59 L 60 50 L Respiratory Rate 26 H 25 H 21 Blood Pressure 183/86 H 158/67 H 159/87 H Pulse Oximetry 99 98 97 01/06/18 07:43 01/06/18 07:58 01/06/18 08:00 Temperature 98.2 F Pulse Rate 61 51 L 54 L Respiratory Rate 25 H 17 22 Blood Pressure 157/83 H 159/90 H Pulse Oximetry 100 98 99 01/06/18 08:10 01/06/18 08:13 01/06/18 08:28 Temperature Pulse Rate 53 L 51 L Respiratory Rate 23 30 H Blood Pressure 152/89 H 160/82 H Pulse Oximetry 98 98 97 01/06/18 09:13 Temperature Pulse Rate 63 Respiratory Rate 19 Blood Pressure 131/67 Pulse Oximetry 97 Intake & Output 01/05/18 01/06/18 01/06/18 18:59 06:59 18:59 Intake Total 281 / 281 200 / 200 Balance 281 / 281 200 / 200 Weight 103.1 kg 98.3 kg Intake: IV 281 / 281 Activase Drip 81 MG In Bag/ 81 / 81 Syringe 1 EACH @ 81 mls/hr IV. SIG ONCE ONE Rx#:[id number] NS Inj 100 ML @ Wide Open IV. 200 / 200 SIG BOLUS ONE Rx#:[id number] Oral 200 / 200 Other: Weight On Admission 103.1 kg Narrative: awake 5/5 bue and ble can talk and in sentences o/w he stutters toes down tone nl tongue ok Objective Laboratory Results - last 24 hr 01/05/18 01/05/18 01/05/18 21:55 21:55 21:55 CBC w Diff Auto diff final WBC 7.6 RBC 5.41 Hgb 16.8 Hct 50.1 MCV 92.7 MCH 31.1 MCHC 33.5 RDW 12.2 Plt Count 182 MPV 9.1 Neut % (Auto) 51.4 Lymph % (Auto) 34.7 [place] % (Auto) 9.0 H Eos % (Auto) 3.9 Baso % (Auto) 1.0 Neut # (Auto) 3.9 Lymph # (Auto) 2.6 [place] # (Auto) 0.7 Eos # (Auto) 0.3 Baso # (Auto) 0.1 WBC Differential . Differential Comment . ESR PT 11.0 INR 1.1 APTT 32.0 H Sodium 139 Potassium 3.7 Chloride 105 Carbon Dioxide 26.1 Anion Gap 8 BUN 16 Creatinine 1.30 Estimated GFR 58 L POC Glucose Random Glucose 112 H Calcium 8.8 Phosphorus Magnesium Total Bilirubin 0.5 AST 14 L ALT 21 Alkaline Phosphatase 26 L Ammonia Troponin I Less than 0.02 L Total Protein 7.2 Albumin 3.7 Triglycerides Cholesterol LDL Cholesterol, Calc HDL Cholesterol Cholesterol/HDL Ratio Vitamin B12 TSH Free T4 Urine Color Urine Clarity Urine pH Ur Specific [place] Urine Protein Urine Glucose (UA) Urine Ketones Urine Occult Blood Urine Nitrate Urine Bilirubin Urine Urobilinogen Ur Leukocyte Esterase Urine RBC Urine WBC Ur Squamous Epith Cells Amorphous Sediment Micro UA Comment Ur Microscopic Review Urine Culture Comments Nasal Screen MRSA (PCR) Urine Opiates Screen Ur Barbiturates Screen Ur Amphetamines Screen U Benzodiazepines Scrn Urine Cocaine Screen U Cannabinoids Screen Rheumatoid Factor Scrn Rheumatoid Factor Titer Blood Type Blood Type Recheck Antibody Screen 01/05/18 01/05/18 01/05/18 21:55 21:55 22:13 CBC w Diff WBC RBC Hgb Hct MCV MCH MCHC RDW Plt Count MPV Neut % (Auto) Lymph % (Auto) [place] % (Auto) Eos % (Auto) Baso % (Auto) Neut # (Auto) Lymph # (Auto) [place] # (Auto) Eos # (Auto) Baso # (Auto) WBC Differential Differential Comment ESR 3 PT INR APTT Sodium Potassium Chloride Carbon Dioxide Anion Gap BUN Creatinine Estimated GFR POC Glucose Random Glucose Calcium Phosphorus Magnesium Total Bilirubin AST ALT Alkaline Phosphatase Ammonia Troponin I Total Protein Albumin Triglycerides Cholesterol LDL Cholesterol, Calc HDL Cholesterol Cholesterol/HDL Ratio Vitamin B12 TSH 0.760 Free T4 Urine Color Urine Clarity Urine pH Ur Specific [place] Urine Protein Urine Glucose (UA) Urine Ketones Urine Occult Blood Urine Nitrate Urine Bilirubin Urine Urobilinogen Ur Leukocyte Esterase Urine RBC Urine WBC Ur Squamous Epith Cells Amorphous Sediment Micro UA Comment Ur Microscopic Review Urine Culture Comments Nasal Screen MRSA (PCR) Urine Opiates Screen Ur Barbiturates Screen Ur Amphetamines Screen U Benzodiazepines Scrn Urine Cocaine Screen U Cannabinoids Screen Rheumatoid Factor Scrn Rheumatoid Factor Titer Blood Type A Positive Blood Type Recheck Required Antibody Screen Negative 01/05/18 01/05/18 01/06/18 22:37 23:05 00:50 CBC w Diff WBC RBC Hgb Hct MCV MCH MCHC RDW Plt Count MPV Neut % (Auto) Lymph % (Auto) [place] % (Auto) Eos % (Auto) Baso % (Auto) Neut # (Auto) Lymph # (Auto) [place] # (Auto) Eos # (Auto) Baso # (Auto) WBC Differential Differential Comment ESR PT INR APTT Sodium Potassium Chloride Carbon Dioxide Anion Gap BUN Creatinine Estimated GFR POC Glucose 96 Random Glucose Calcium Phosphorus Magnesium Total Bilirubin AST ALT Alkaline Phosphatase Ammonia 36 H Troponin I Total Protein Albumin Triglycerides Cholesterol LDL Cholesterol, Calc HDL Cholesterol Cholesterol/HDL Ratio Vitamin B12 TSH Free T4 Urine Color Urine Clarity Urine pH Ur Specific [place] Urine Protein Urine Glucose (UA) Urine Ketones Urine Occult Blood Urine Nitrate Urine Bilirubin Urine Urobilinogen Ur Leukocyte Esterase Urine RBC Urine WBC Ur Squamous Epith Cells Amorphous Sediment Micro UA Comment Ur Microscopic Review Urine Culture Comments Nasal Screen MRSA (PCR) Urine Opiates Screen Neg Ur Barbiturates Screen Neg Ur Amphetamines Screen Neg U Benzodiazepines Scrn Pos H Urine Cocaine Screen Neg U Cannabinoids Screen Neg Rheumatoid Factor Scrn Rheumatoid Factor Titer Blood Type Blood Type Recheck Antibody Screen 01/06/18 01/06/18 01/06/18 00:50 03:12 04:42 CBC w Diff WBC RBC Hgb Hct MCV MCH MCHC RDW Plt Count MPV Neut % (Auto) Lymph % (Auto) [place] % (Auto) Eos % (Auto) Baso % (Auto) Neut # (Auto) Lymph # (Auto) [place] # (Auto) Eos # (Auto) Baso # (Auto) WBC Differential Differential Comment ESR PT INR APTT Sodium 138 Potassium 3.5 Chloride 107 Carbon Dioxide 23.9 Anion Gap 7 BUN 17 Creatinine 0.91 Estimated GFR 87 L POC Glucose Random Glucose 88 Calcium 8.4 L Phosphorus 3.4 Magnesium 2.2 Total Bilirubin AST ALT Alkaline Phosphatase Ammonia Troponin I Total Protein Albumin Triglycerides 262 H Cholesterol 242 H LDL Cholesterol, Calc 161 H HDL Cholesterol 28.2 L Cholesterol/HDL Ratio 8.58 Vitamin B12 407 TSH Free T4 1.20 Urine Color Yellow Urine Clarity Slightly cloudy Urine pH 8.0 Ur Specific [place] Less/equal 1.005 Urine Protein Negative Urine Glucose (UA) Negative Urine Ketones Negative Urine Occult Blood Trace Urine Nitrate Negative Urine Bilirubin Negative Urine Urobilinogen 1.0 Ur Leukocyte Esterase Negative Urine RBC 4-15 H Urine WBC 0-5 Ur Squamous Epith Cells 0-5 Amorphous Sediment Moderate H Micro UA Comment Culture not ind Ur Microscopic Review Microscopic reviewed Urine Culture Comments Culture not ind Nasal Screen MRSA (PCR) Not detected Urine Opiates Screen Ur Barbiturates Screen Ur Amphetamines Screen U Benzodiazepines Scrn Urine Cocaine Screen U Cannabinoids Screen Rheumatoid Factor Scrn Positive H Rheumatoid Factor Titer 808.0 H Blood Type Blood Type Recheck Antibody Screen 01/06/18 04:42 CBC w Diff WBC 10.8 RBC 4.75 Hgb 15.6 Hct 45.3 MCV 95.4 MCH 32.9 MCHC 34.6 RDW 13.4 Plt Count 156 MPV 8.8 Neut % (Auto) 61.8 Lymph % (Auto) 26.8 [place] % (Auto) 7.8 Eos % (Auto) 2.9 Baso % (Auto) 0.7 Neut # (Auto) 6.7 Lymph # (Auto) 2.9 [place] # (Auto) 0.8 Eos # (Auto) 0.3 Baso # (Auto) 0.1 WBC Differential . Differential Comment Auto diff final ESR PT INR APTT Sodium Potassium Chloride Carbon Dioxide Anion Gap BUN Creatinine Estimated GFR POC Glucose Random Glucose Calcium Phosphorus Magnesium Total Bilirubin AST ALT Alkaline Phosphatase Ammonia Troponin I Total Protein Albumin Triglycerides Cholesterol LDL Cholesterol, Calc HDL Cholesterol Cholesterol/HDL Ratio Vitamin B12 TSH Free T4 Urine Color Urine Clarity Urine pH Ur Specific [place] Urine Protein Urine Glucose (UA) Urine Ketones Urine Occult Blood Urine Nitrate Urine Bilirubin Urine Urobilinogen Ur Leukocyte Esterase Urine RBC Urine WBC Ur Squamous Epith Cells Amorphous Sediment Micro UA Comment Ur Microscopic Review Urine Culture Comments Nasal Screen MRSA (PCR) Urine Opiates Screen Ur Barbiturates Screen Ur Amphetamines Screen U Benzodiazepines Scrn Urine Cocaine Screen U Cannabinoids Screen Rheumatoid Factor Scrn Rheumatoid Factor Titer Blood Type Blood Type Recheck Antibody Screen Review/Management - Review/Management Plan: imp whole episode odd denies depression ctax2 neg ct and mri nl labs ok x rf 800 esr nl ldl 161 needs statin add back sinemet hx MSA recent retired no old or new cva on mri fu echo holter plavix when able oob check eeg
[2018-01-06] MEDS: Sod Chloride 0.9% Inj 1,000 ML IV.CONT SCH (11:58)
[2018-01-06] MEDS: Morphine Sulfate Inj 2 MG/ML Vial IV.PUSH PRN ×3 (12:01→20:32)
[2018-01-06 13:48] LABS: ABG Base Excess -0.9 mmol/L (-2-2); ABG PCO2 30 mmHg (38-42); ABG PO2 93 mmHg (61-120)
--- NOTE | 2018-01-06 13:53 | ECG ---
Date Performed: 01/05/2018 Time Performed: 22:45:36 PTAGE: 52 years EKG: Sinus rhythm POSSIBLE LEFT ATRIAL ENLARGEMENT BORDERLINE ECG Since the PREVIOUS TRACING , no significant change noted PREVIOUS TRACIN12/26/2015 09.38 DOCTOR: David Shaikh Interpretating Date/Time 01/06/2018 13:52:13
--- NOTE | 2018-01-06 14:55 | ECHRPT ---
Indication: CVA/TIA CONCLUSIONS Normal left ventricular size. Wall thickness is normal. Normal left ventricular systolic size with an ejection fraction of 60-65%. Trace mitral valve regurgitation. There is trace tricuspid valve regurgitation. The estimated pulmonary arterial pressure is 34.2 mmHg. BP: / HR: Rhythm: Sinus MEASUREMENTS (Male / Female) Normal Values Technical Quality:Fair 2D ECHO LV Diastolic Diameter PLAX 4.9 cm 4.2 - 5.9 / 3.9 - 5.3 cm LV Systolic Diameter PLAX 3.6 cm IVS Diastolic Thickness 1.0 cm 0.6 - 1.0 / 0.6 - 0.9 cm LVPW Diastolic Thickness 1.0 cm 0.6 - 1.0 / 0.6 - 0.9 cm LV Relative Wall Thickness 0.4 RV Internal Dim ED PLAX 2.7 cm LVOT Diameter 2.1 cm Aortic Root Diameter 3.4 cm LA Systolic Diameter LX 2.7 cm 3.0 - 4.0 / 2.7 - 3.8 cm M-MODE AV Cusp Separation MM 2.4 cm DOPPLER AV Peak Velocity 124.0 cm/s AV Peak Gradient 6.2 mmHg AV Mean Gradient 4.0 mmHg AV Velocity Time Integral 27.3 cm LVOT Peak Velocity 102.0 cm/s LVOT Peak Gradient 4.2 mmHg LVOT Velocity Time Integral 19.6 cm AV Area Cont Eq vti 2.5 cm AV Area Cont Eq pk 2.8 cm Mitral E Point Velocity 79.0 cm/s Mitral A Point Velocity 77.5 cm/s Mitral E to A Ratio 1.0 LV E' Lateral Velocity 12.2 cm/s Mitral E to LV E' Lateral Ratio 6.5 LV E' Septal Velocity 8.5 cm/s Mitral E to LV E' Septal Ratio 9.3 TR Peak Velocity 246.0 cm/s TR Peak Gradient 24.2 mmHg Right Atrial Pressure 10.0 mmHg Pulmonary Artery Systolic Pressu 34.2 mmHg Right Ventricular Systolic Press 34.2 mmHg PV Peak Velocity 69.2 cm/s PV Peak Gradient 1.9 mmHg FINDINGS LEFT VENTRICLE Normal left ventricular size. Wall thickness is normal. The left ventricular systolic function is normal with an estimated ejection fraction in the range of 60-65%. RIGHT VENTRICLE Normal right ventricular size and systolic function. LEFT ATRIUM The left atrial size is normal. RIGHT ATRIUM The right atrial size is normal. ATRIAL SEPTUM No atrial level shunt is demonstrated by color flow Doppler interrogation. AORTA The aortic root and proximal ascending aorta are not well visualized. MITRAL VALVE Trace mitral valve regurgitation. AORTIC VALVE Trileaflet aortic valve. No aortic valve stenosis or regurgitation. TRICUSPID VALVE There is trace tricuspid valve regurgitation. The estimated pulmonary arterial pressure is 34.2 mmHg. PULMONARY VALVE No pulmonary valve regurgitation or stenosis. VESSELS The inferior vena cava is normal in size. PERICARDIUM No pericardial effusion. David Shaikh MD, FACC, [facility] (Electronically Signed) Final Date:06 January 2018 14:54
--- NOTE | 2018-01-06 15:58 | P.DIET ---
Nutritional Evaluation Nutrition screening: Weight Loss > 10 lbs Subjective Subjective Comments: Pt reports a good appetite but also unintentional wt loss in admitting intake form Objective - Diagnosis Stroke Alert - Objective % IBW: 107 (IBW: 91.8kg (Ht used from prev. adm.) Body Weight Used for Calculations: Actual (98.3kg) Energy Needs - Lower Range (kCal/kg): 25 Energy Needs - Upper Range (kCal/kg): 30 Lower Limit kCal/kg (kCals): 2,458 Upper Limit kCal/kg (kCals): 2,949 Lower Limit Protein Factor (Grams per Kg): 1.1 Upper Limit Protein Factor (Grams per Kg): 1.3 Lower Protein Needs (Protein): 108 Upper Protein Needs (Protein): 128 Dietitian Reviewed in Medical Record: Current diet, Curent medications, Intake & Output, Labs, Medical history Diet Order: Pureed with nectar thick liquids Speech Therapy Recommendations: Yes Objective Comments: PMH: Lupus, Parkinson's, recent hx CVA Assessment Assessment: Pt at nutritional risk r/t dx and reported recent wt loss. Pt admitted as a stroke alert. His nutritional needs are as stated above, calculated using HT from previous admission as it has been incorrectly entered into [employer], (76cm) . Adequate po intake has not yet been established. Will monitor po intake and provide supplements if needed. Recommendations: Continue present diet Dietitian to Monitor: Lab values, Intake & Output, Diet tolerance, Weight change , Swallow recommendations, Medical course
--- NOTE | 2018-01-06 19:23 | MG ---
cc: Hector Valiente MD CLINICAL HISTORY: Status post tPA, change in mental status. DESCRIPTION: Recording shows diffuse alpha and beta rhythms and posterior rhythm to 12 Hz, 60 microvolt seen. Head jerking is noted with photic stimulation. Just correlates with some muscle artifact. The patient has a history of benzodiazepine use, Sinemet. No epileptiform or seizure activity is noted. There are no hemisphere asymmetries. IMPRESSION: Normal awake EEG. No evidence for a focal or diffuse abnormality. Head jerking was noted, but that did not correlate with any seizure activity or other abnormalities. Hector Valiente MD DJM/sj , 07:08 PM , 07:11 PM
[2018-01-06] MEDS: Aspirin 325 MG Tablet PO SCH (21:05)
--- NOTE | 2018-01-07 00:16 | CT ---
EXAM DATE: 01/07/2018 12:09 AM EST AGE/SEX: 52 years / Male INDICATIONS: Post TPA. Follow up stroke. CLINICAL DATA: This is the patient's subsequent encounter. Patient reports that signs and symptoms h ave been present for 1 day and indicates a pain score of 0/10. MEDICAL/SURGICAL HISTORY: Stroke. Parkinson's disease. Lupus. Cholecystectomy. RADIATION DOSE: 34.97 CTDI (mGy) COMPARISON: [facility], CT HEAD W/O CONTRAST, 01/05/2018. . TECHNIQUE: CT of the head without contrast. Using automated exposure control and adjustment of the mA and/or kV according to patient size, radiation dose was kept as low as reasonably achievable to ob tain optimal diagnostic quality images. DICOM format image data is available electronically for revi ew and comparison. FINDINGS: Cerebrum: The ventricles are normal for age. No evidence of midline shift, mass lesion, hemorrhage or acute infarction. No extraaxial fluid collections are seen. Posterior Fossa: The cerebellum and brainstem are intact. The 4th ventricle is midline. The cerebe llopontine angle is unremarkable. Extracranial: The visualized portion of the orbits is intact. Skull: The calvaria is intact. No evidence of skull fracture. CONCLUSION: 1. No acute intracranial abnormalities. . Electronically signed by: Geoffrey Kennedy MD 01/07/2018 12:15 AM EST
[2018-01-07] MEDS ORDERED: Temazepam 15 MG Capsule PO PRN (00:46)
[2018-01-07] MEDS: Sod Chloride 0.9% Inj 1,000 ML IV.CONT SCH ×2 (02:48→15:55)
[2018-01-07] MEDS: Insulin NovoLIN Regular Correctional Sugar Inj SQ SCH ×5 (02:48→20:35)
[2018-01-07] MEDS: Morphine Sulfate Inj 2 MG/ML Vial IV.PUSH PRN ×3 (03:03→15:47)
[2018-01-07] MEDS: Gabapentin 100 MG Capsule PO SCH ×3 (03:03→18:18)
[2018-01-07] MEDS: Chlorhexidine Gluconate 2% 1 Pack (2 Cloths) TOPICAL SCH (03:20)
[2018-01-07 05:59] LABS: Baso # (Auto) 0.1 th/mm3 (0.0-0.2); Baso % (Auto) 1.1 % (0.0-2.0); Eos # (Auto) 0.1 th/mm3 (0.0-0.4); Eos % (Auto) 1.8 % (0.0-4.0); Hematocrit 50.2 % (39.0-51.0); Hemoglobin 17.6 gm/dL (13.0-17.0); Lymph # (Auto) 1.8 th/mm3 (1.0-4.8); Lymph % (Auto) 21.2 % (9.0-44.0); Mean Corpuscular Hemoglobin 33.1 pg (27.0-34.0); Mean Corpuscular Volume 94.8 fL (80.0-100.0); Mean Platelet Volume 8.5 fL (7.0-11.0); Mono # (Auto) 0.6 th/mm3 (0.0-0.9); Mono % (Auto) 6.8 % (0.0-8.0); Neut # (Auto) 5.7 th/mm3 (1.8-7.7); Neut % (Auto) 69.1 % (16.0-70.0); Platelet Count 156 th/mm3 (150-450); Red Cell Distribution Width 13.3 % (11.6-17.2); White Blood Count 8.3 th/mm3 (4.0-11.0)
[2018-01-07 06:21] LABS: Calcium 9.2 mg/dL (8.5-10.1); Carbon Dioxide 24.1 meq/L (21.0-32.0); Magnesium 2.4 mg/dL (1.5-2.5); Phosphorus 3.6 mg/dL (2.5-4.9); Potassium 3.9 meq/L (3.5-5.1)
[2018-01-07] MEDS: Famotidine 20 MG Tablet PO SCH ×2 (08:25→20:35)
[2018-01-07] MEDS: Aspirin 325 MG Tablet PO SCH (08:26)
[2018-01-07] MEDS: Senna/Docusate Sodium 8.6/50 MG Tablet PO SCH ×2 (08:26→20:36)
[2018-01-07] MEDS: Polyethylene Glycol 3350 17 GM Packet PO SCH ×2 (08:29→20:26)
--- NOTE | 2018-01-07 09:02 | P.PNNEU ---
Subjective Subjective Comments: not sleeping well Active Medications: Active Medications Albuterol (Duoneb Neb (Prn)) 1 ampul NEB Q2HR NEB PRN PRN Reason: WHEEZING Last Admin: 01/05/18 23:08 Dose: 1 ampul Aspirin (Aspirin) 325 mg PO DAILY [facility] Last Admin: 01/07/18 08:26 Dose: 325 mg Atorvastatin Calcium (Lipitor) 80 mg PO DAILY [facility] Last Admin: 01/07/18 08:25 Dose: 80 mg Bisacodyl (Dulcolax Supp) 10 mg RECTAL DAILY PRN PRN Reason: if no BM in last 24h Carbidopa/Levodopa (Sinemet 25/100 Mg) 1 tab PO TID@0800,1200,1600 [facility] Last Admin: 01/07/18 08:28 Dose: 1 tab Chlorhexidine Gluconate (Chlorhexidine 2% Cloth) 3 pack TOPICAL DAILY@0400 [facility] Stop: 01/11/18 03:59 Last Admin: 01/07/18 03:20 Dose: Not Given Chlorhexidine Gluconate (Chlorhexidine 2% Cloth) 3 pack TOPICAL DAILY@0400 PRN PRN Reason: Extra cloth needed Stop: 01/11/18 03:59 Clopidogrel Bisulfate (Plavix) 75 mg PO DAILY [facility] Last Admin: 01/07/18 08:24 Dose: 75 mg Dextrose (D50w Vial) 50 ml IV.PUSH UNSCH PRN PRN Reason: PER HYPOGLYCEMIA PROTOCOL Famotidine (Pepcid) 20 mg PO BID [facility] Last Admin: 01/07/18 08:25 Dose: 20 mg Gabapentin (Neurontin) 100 mg PO TID [facility] Last Admin: 01/07/18 03:03 Dose: 100 mg Glucagon (Glucagon Inj) 1 mg OTHER PRN PRN PRN Reason: for Hypoglycemia Protocol Hydralazine HCl (Apresoline Inj) 10 mg IV.PUSH Q30M PRN PRN Reason: sbp > 180 Sodium Chloride (Ns Inj) 1,000 mls @ 70 mls/hr IV.CONT .[id number] [facility] Last Admin: 01/07/18 02:48 Dose: 70 mls/hr Magnesium Sulfate 4 gm/ Sodium (Chloride) 100 mls @ 50 mls/hr IV.SIG UNSCH PRN PRN Reason: For Magnesium 0.9 - 1.1 mg/dL Magnesium Sulfate 2 gm/ Sodium (Chloride) 100 mls @ 50 mls/hr IV.SIG UNSCH PRN PRN Reason: For Magnesium 1.2 - 1.6 mg/dL Potassium Chloride (Kcl 40 Meq Premix Inj) 40 meq in 100 mls @ 25 mls/hr IV.SIG Q2H PRN PRN Reason: For Potassium 2.8 - 3.2 mEq/L Potassium Chloride (Kcl 20 Meq Premix Inj) 20 meq in 100 mls @ 50 mls/hr IV.SIG Q2H PRN PRN Reason: For Potassium 3.3 - 3.5 mEq/L Potassium Chloride (Kcl 40 Meq Premix Inj) 40 meq in 100 mls @ 25 mls/hr IV.SIG UNSCH PRN PRN Reason: For Potassium 3.3 - 3.5 mEq/L Potassium Chloride (Kcl 20 Meq Premix Inj) 20 meq in 100 mls @ 50 mls/hr IV.SIG Q2H PRN PRN Reason: For Potassium 2.8 - 3.2 mEq/L Potassium Phosphate 30 mmol/ (Sodium Chloride) 260 mls @ 42 mls/hr IV.SIG UNSCH PRN PRN Reason: SEE LABEL COMMENTS Sodium Phosphate 30 mmol/ (Sodium Chloride) 260 mls @ 42 mls/hr IV.SIG UNSCH PRN PRN Reason: For Phosphorus < 2.5 mg/dL Insulin Human Regular (Novolin R Correctional Sugar Inj) 0 units SQ ACHS AND 3AM [facility]; Protocol Last Admin: 01/07/18 08:10 Dose: Not Given Labetalol HCl (Trandate Inj) 10 mg IV.PUSH Q30M PRN PRN Reason: sbp > 180 Lactulose (Lactulose Liq) 30 ml PO BID [facility] Last Admin: 01/07/18 08:29 Dose: Not Given Magnesium Oxide (Mag-Ox) 800 mg PO UNSCH PRN PRN Reason: For Magnesium 1.2 - 1.6 mg/dL Morphine Sulfate (Morphine Inj) 2 mg IV.PUSH Q3H PRN PRN Reason: Headache pain 6-10 Last Admin: 01/07/18 08:28 Dose: 2 mg Ondansetron HCl (Zofran Inj) 4 mg IV.PUSH Q6H PRN PRN Reason: NAUSEA OR VOMITING Last Admin: 01/06/18 19:36 Dose: 4 mg Polyethylene Glycol (Miralax) 17 gm PO BID [facility] Last Admin: 01/07/18 08:29 Dose: Not Given Potassium Bicarb/Potassium Chloride (K-Lyte Cl Eff) 50 meq PO UNSCH PRN PRN Reason: For Potassium 3.3 - 3.5 mEq/L Potassium Phosphate (K-Phos Original) 2,000 mg PO Q4H PRN PRN Reason: Phosphorus Less Than 2.5 mg/dL Potassium Phosphate (K-Phos Original) 2,000 mg PO UNSCH PRN PRN Reason: SEE LABEL COMMENTS Senna/Docusate Sodium (Asia-Colace) 1 tab PO BID [facility] Last Admin: 01/07/18 08:26 Dose: 1 tab Sodium Chloride (Ns Flush) 2 ml IV.FLUSH UNSCH PRN PRN Reason: FLUSH AFTER USING IV ACCESS Temazepam (Restoril) 30 mg PO HS PRN PRN Reason: sleep Last Admin: 01/07/18 01:00 Dose: 30 mg Allergies/Adverse Reactions: Allergies Allergy/AdvReac Type Severity Reaction Status Date / Time azithromycin Allergy Severe HIVES/SYNCO Verified 01/05/18 22:44 PE blue dye Allergy Severe NAUSEA/VOMI Verified 01/05/18 22:44 TING ciprofloxacin Allergy Severe Anaphylaxis Verified 01/05/18 22:44 esomeprazole Allergy Severe Hives Verified 01/05/18 22:44 FD and C yellow no.6 (sunset Allergy Severe NAUSEA/VOMI Verified 01/05/18 22:44 yellow TING levofloxacin Allergy Severe Hives Verified 01/05/18 22:44 prochlorperazine Allergy Severe Anaphylaxis Verified 01/05/18 22:44 Physical Exam Vital signs: Vital Signs 01/06/18 09:13 01/06/18 10:00 01/06/18 11:00 Temperature Pulse Rate 63 64 Respiratory Rate 19 43 H Blood Pressure 131/67 169/94 H 158/89 H Pulse Oximetry 97 98 01/06/18 11:01 01/06/18 12:00 01/06/18 13:00 Temperature 98.1 F Pulse Rate 63 68 65 Respiratory Rate 18 26 H 20 Blood Pressure 170/95 H 154/87 H Pulse Oximetry 97 97 99 01/06/18 14:00 01/06/18 15:00 01/06/18 16:00 Temperature Pulse Rate 66 64 72 Respiratory Rate 23 20 26 H Blood Pressure 170/92 H 140/80 167/91 H Pulse Oximetry 98 98 97 01/06/18 16:56 01/06/18 17:03 01/06/18 18:00 Temperature Pulse Rate 65 69 Respiratory Rate 20 20 Blood Pressure 168/88 H 152/93 H Pulse Oximetry 97 97 01/06/18 19:00 01/06/18 19:08 01/06/18 20:00 Temperature 97.7 F Pulse Rate 58 L 60 66 Respiratory Rate 11 L 25 H 20 Blood Pressure 175/89 H 175/89 H 173/80 H Pulse Oximetry 97 98 98 01/06/18 20:52 01/06/18 21:00 01/06/18 21:38 Temperature Pulse Rate 54 L Respiratory Rate 17 18 Blood Pressure 147/83 H Pulse Oximetry 98 98 01/06/18 22:00 01/06/18 23:00 01/07/18 00:00 Temperature 97.9 F Pulse Rate 58 L 68 68 Respiratory Rate 22 27 H 30 H Blood Pressure 153/83 H 156/85 H 159/84 H Pulse Oximetry 98 98 98 01/07/18 01:00 01/07/18 02:00 01/07/18 03:00 Temperature 97.9 F Pulse Rate 58 L 55 L 75 Respiratory Rate 15 23 34 H Blood Pressure 159/84 H 166/85 H 188/93 H Pulse Oximetry 96 97 97 01/07/18 04:00 01/07/18 04:59 01/07/18 05:04 Temperature 97.9 F Pulse Rate 59 L 73 Respiratory Rate 13 19 Blood Pressure 136/66 141/84 H Pulse Oximetry 96 99 01/07/18 05:05 01/07/18 05:41 01/07/18 06:00 Temperature Pulse Rate 73 61 56 L Respiratory Rate 26 H 14 12 Blood Pressure 141/84 H 136/78 Pulse Oximetry 95 96 96 01/07/18 07:15 Temperature Pulse Rate Respiratory Rate Blood Pressure Pulse Oximetry 98 Intake & Output 01/06/18 01/07/18 01/07/18 18:59 06:59 18:59 Intake Total 1550 / 1550 580 / 580 Output Total 1500 / 1500 Balance 50 / 50 580 / 580 Weight 98.3 kg 95.8 kg Intake: IV 1000 / 1000 100 / 100 NS Inj 1,000 ML @ 70 mls/hr IV. 1000 / 1000 100 / 100 CONT .[id number] [facility] Rx#: [id number] Oral 550 / 550 480 / 480 Output: Urine 1500 / 1500 Other: # Voids 2 5 Date of Last Bowel Movement 01/05/18 # Bowel Movements 0 0 Narrative: awake alert oriented less tremor jaw moving tongue better 5/5 t/o speech and repettion nl rare stutter Objective Laboratory Results - last 24 hr 01/06/18 01/06/18 01/07/18 13:39 20:36 05:13 WBC 8.3 RBC 5.30 Hgb 17.6 H D Hct 50.2 MCV 94.8 MCH 33.1 MCHC 35.0 RDW 13.3 Plt Count 156 MPV 8.5 Neut % (Auto) 69.1 Lymph % (Auto) 21.2 [place] % (Auto) 6.8 Eos % (Auto) 1.8 Baso % (Auto) 1.1 Neut # (Auto) 5.7 Lymph # (Auto) 1.8 [place] # (Auto) 0.6 Eos # (Auto) 0.1 Baso # (Auto) 0.1 WBC Differential . Differential Comment Auto diff final Puncture Site Right radial Patient Temperature 98.6 O2 Saturation 95 ABG pH 7.49 H ABG pCO2 30 L ABG pO2 93 ABG HCO3 22 ABG O2 Content 22.5 H ABG Base Excess -0.9 ABG Methemoglobin 1.1 Jude Test Present Hemoglobin 16.8 H Carboxyhemoglobin 1.5 Inspired O2 21 Critical Value No Sodium Potassium Chloride Carbon Dioxide Anion Gap BUN Creatinine Estimated GFR POC Glucose 95 Random Glucose Calcium Phosphorus Magnesium 01/07/18 01/07/18 05:13 07:50 WBC RBC Hgb Hct MCV MCH MCHC RDW Plt Count MPV Neut % (Auto) Lymph % (Auto) [place] % (Auto) Eos % (Auto) Baso % (Auto) Neut # (Auto) Lymph # (Auto) [place] # (Auto) Eos # (Auto) Baso # (Auto) WBC Differential Differential Comment Puncture Site Patient Temperature O2 Saturation ABG pH ABG pCO2 ABG pO2 ABG HCO3 ABG O2 Content ABG Base Excess ABG Methemoglobin Jude Test Hemoglobin Carboxyhemoglobin Inspired O2 Critical Value Sodium 137 Potassium 3.9 Chloride 106 Carbon Dioxide 24.1 Anion Gap 7 BUN 11 Creatinine 0.91 Estimated GFR 87 L POC Glucose 95 Random Glucose 79 Calcium 9.2 D Phosphorus 3.6 Magnesium 2.4 Review/Management - Review/Management Plan: imp whole episode odd denies depression ctax2 neg ct and mri nl labs ok x rf 800 esr nl ldl 161 needs statin add back sinemet hx MSA recent retired no old or new cva on mri fu echo holter plavix when able oob check eeg 01/07/18 eeg nl check cpk will rx with 10 decadron for ra he feels burning inside denies depression on statin and plavix could dc in am if feeling better after steroids i dw him stuttering usually psychological
[2018-01-07] MEDS ORDERED: Dexamethasone Inj 20 MG/5 ML Vial IV.PUSH ONE (10:00)
[2018-01-07 11:20] LABS: Anti-Nuclear Antibody Screen Neg (Neg)
--- NOTE | 2018-01-07 12:20 | P.PNIM ---
Physical Exam Vital signs: Vital Signs 01/06/18 13:00 01/06/18 14:00 01/06/18 15:00 Temperature Pulse Rate 65 66 64 Respiratory Rate 20 23 20 Blood Pressure 154/87 H 170/92 H 140/80 Pulse Oximetry 99 98 98 01/06/18 16:00 01/06/18 16:56 01/06/18 17:03 Temperature Pulse Rate 72 65 Respiratory Rate 26 H 20 Blood Pressure 167/91 H 168/88 H Pulse Oximetry 97 97 01/06/18 18:00 01/06/18 19:00 01/06/18 19:08 Temperature Pulse Rate 69 58 L 60 Respiratory Rate 20 11 L 25 H Blood Pressure 152/93 H 175/89 H 175/89 H Pulse Oximetry 97 97 98 01/06/18 20:00 01/06/18 20:52 01/06/18 21:00 Temperature 97.7 F Pulse Rate 66 54 L Respiratory Rate 20 17 18 Blood Pressure 173/80 H 147/83 H Pulse Oximetry 98 98 01/06/18 21:38 01/06/18 22:00 01/06/18 23:00 Temperature Pulse Rate 58 L 68 Respiratory Rate 22 27 H Blood Pressure 153/83 H 156/85 H Pulse Oximetry 98 98 98 01/07/18 00:00 01/07/18 01:00 01/07/18 02:00 Temperature 97.9 F 97.9 F Pulse Rate 68 58 L 55 L Respiratory Rate 30 H 15 23 Blood Pressure 159/84 H 159/84 H 166/85 H Pulse Oximetry 98 96 97 01/07/18 03:00 01/07/18 04:00 01/07/18 04:59 Temperature 97.9 F Pulse Rate 75 59 L 73 Respiratory Rate 34 H 13 19 Blood Pressure 188/93 H 136/66 Pulse Oximetry 97 96 99 01/07/18 05:04 01/07/18 05:05 01/07/18 05:41 Temperature Pulse Rate 73 61 Respiratory Rate 26 H 14 Blood Pressure 141/84 H 141/84 H Pulse Oximetry 95 96 01/07/18 06:00 01/07/18 07:00 01/07/18 07:15 Temperature Pulse Rate 56 L 56 L Respiratory Rate 12 14 Blood Pressure 136/78 146/79 H Pulse Oximetry 96 97 98 01/07/18 08:00 01/07/18 09:00 01/07/18 09:41 Temperature 98.5 F Pulse Rate 56 L 60 64 Respiratory Rate 15 20 20 Blood Pressure 155/85 H 139/83 148/88 H Pulse Oximetry 97 97 96 01/07/18 09:45 01/07/18 09:47 01/07/18 10:02 Temperature Pulse Rate 66 Respiratory Rate 15 Blood Pressure 149/85 H 161/79 H Pulse Oximetry 96 01/07/18 10:03 01/07/18 11:00 Temperature Pulse Rate 62 71 Respiratory Rate 15 17 Blood Pressure 138/80 Pulse Oximetry 96 97 Intake & Output 01/06/18 01/07/18 01/07/18 18:59 06:59 18:59 Intake Total 1550 / 1550 580 / 580 Output Total 1500 / 1500 Balance 50 / 50 580 / 580 Weight 98.3 kg 95.8 kg Intake: IV 1000 / 1000 100 / 100 NS Inj 1,000 ML @ 70 mls/hr IV. 1000 / 1000 100 / 100 CONT .[id number] [facility] Rx#: [id number] Oral 550 / 550 480 / 480 Output: Urine 1500 / 1500 Other: # Voids 2 5 Date of Last Bowel Movement 01/05/18 # Bowel Movements 0 0 Results - Labs CBC & Chem 7: 01/07/18 05:13 01/07/18 05:13 Laboratory Results - last 24 hr 01/05/18 01/06/18 01/06/18 23:05 13:39 20:36 WBC RBC Hgb Hct MCV MCH MCHC RDW Plt Count MPV Neut % (Auto) Lymph % (Auto) [place] % (Auto) Eos % (Auto) Baso % (Auto) Neut # (Auto) Lymph # (Auto) [place] # (Auto) Eos # (Auto) Baso # (Auto) WBC Differential Differential Comment Puncture Site Right radial Patient Temperature 98.6 O2 Saturation 95 ABG pH 7.49 H ABG pCO2 30 L ABG pO2 93 ABG HCO3 22 ABG O2 Content 22.5 H ABG Base Excess -0.9 ABG Methemoglobin 1.1 Jude Test Present Hemoglobin 16.8 H Carboxyhemoglobin 1.5 Inspired O2 21 Critical Value No Sodium Potassium Chloride Carbon Dioxide Anion Gap BUN Creatinine Estimated GFR POC Glucose 95 Random Glucose Calcium Phosphorus Magnesium MIMI Screen Neg RPR Nonreactive 11/01/07/18 01/07/18 05:13 05:13 07:50 WBC 8.3 RBC 5.30 Hgb 17.6 H D Hct 50.2 MCV 94.8 MCH 33.1 MCHC 35.0 RDW 13.3 Plt Count 156 MPV 8.5 Neut % (Auto) 69.1 Lymph % (Auto) 21.2 [place] % (Auto) 6.8 Eos % (Auto) 1.8 Baso % (Auto) 1.1 Neut # (Auto) 5.7 Lymph # (Auto) 1.8 [place] # (Auto) 0.6 Eos # (Auto) 0.1 Baso # (Auto) 0.1 WBC Differential . Differential Comment Auto diff final Puncture Site Patient Temperature O2 Saturation ABG pH ABG pCO2 ABG pO2 ABG HCO3 ABG O2 Content ABG Base Excess ABG Methemoglobin Jude Test Hemoglobin Carboxyhemoglobin Inspired O2 Critical Value Sodium 137 Potassium 3.9 Chloride 106 Carbon Dioxide 24.1 Anion Gap 7 BUN 11 Creatinine 0.91 Estimated GFR 87 L POC Glucose 95 Random Glucose 79 Calcium 9.2 D Phosphorus 3.6 Magnesium 2.4 MIMI Screen RPR - Imaging Impressions Head CT 01/07/18 00:00 CONCLUSION: 1. No acute intracranial abnormalities. .
--- NOTE | 2018-01-07 12:37 | P.PNIM ---
Subjective Interval history: Patient had nausea and vomiting this morning. He reports feeling lightheaded. He states that he gets dizziness intermittently but it is slightly worse today. He reports a feeling of burning type of pain all over his body. Physical Exam Vital signs: Vital Signs 01/06/18 13:00 01/06/18 14:00 01/06/18 15:00 Temperature Pulse Rate 65 66 64 Respiratory Rate 20 23 20 Blood Pressure 154/87 H 170/92 H 140/80 Pulse Oximetry 99 98 98 01/06/18 16:00 01/06/18 16:56 01/06/18 17:03 Temperature Pulse Rate 72 65 Respiratory Rate 26 H 20 Blood Pressure 167/91 H 168/88 H Pulse Oximetry 97 97 01/06/18 18:00 01/06/18 19:00 01/06/18 19:08 Temperature Pulse Rate 69 58 L 60 Respiratory Rate 20 11 L 25 H Blood Pressure 152/93 H 175/89 H 175/89 H Pulse Oximetry 97 97 98 01/06/18 20:00 01/06/18 20:52 01/06/18 21:00 Temperature 97.7 F Pulse Rate 66 54 L Respiratory Rate 20 17 18 Blood Pressure 173/80 H 147/83 H Pulse Oximetry 98 98 01/06/18 21:38 01/06/18 22:00 01/06/18 23:00 Temperature Pulse Rate 58 L 68 Respiratory Rate 22 27 H Blood Pressure 153/83 H 156/85 H Pulse Oximetry 98 98 98 01/07/18 00:00 01/07/18 01:00 01/07/18 02:00 Temperature 97.9 F 97.9 F Pulse Rate 68 58 L 55 L Respiratory Rate 30 H 15 23 Blood Pressure 159/84 H 159/84 H 166/85 H Pulse Oximetry 98 96 97 01/07/18 03:00 01/07/18 04:00 01/07/18 04:59 Temperature 97.9 F Pulse Rate 75 59 L 73 Respiratory Rate 34 H 13 19 Blood Pressure 188/93 H 136/66 Pulse Oximetry 97 96 99 01/07/18 05:04 01/07/18 05:05 01/07/18 05:41 Temperature Pulse Rate 73 61 Respiratory Rate 26 H 14 Blood Pressure 141/84 H 141/84 H Pulse Oximetry 95 96 01/07/18 06:00 01/07/18 07:00 01/07/18 07:15 Temperature Pulse Rate 56 L 56 L Respiratory Rate 12 14 Blood Pressure 136/78 146/79 H Pulse Oximetry 96 97 98 01/07/18 08:00 01/07/18 09:00 01/07/18 09:41 Temperature 98.5 F Pulse Rate 56 L 60 64 Respiratory Rate 15 20 20 Blood Pressure 155/85 H 139/83 148/88 H Pulse Oximetry 97 97 96 01/07/18 09:45 01/07/18 09:47 01/07/18 10:02 Temperature Pulse Rate 66 Respiratory Rate 15 Blood Pressure 149/85 H 161/79 H Pulse Oximetry 96 01/07/18 10:03 01/07/18 11:00 Temperature Pulse Rate 62 71 Respiratory Rate 15 17 Blood Pressure 138/80 Pulse Oximetry 96 97 Intake & Output 01/06/18 01/07/18 01/07/18 18:59 06:59 18:59 Intake Total 1550 / 1550 580 / 580 Output Total 1500 / 1500 Balance 50 / 50 580 / 580 Weight 98.3 kg 95.8 kg Intake: IV 1000 / 1000 100 / 100 NS Inj 1,000 ML @ 70 mls/hr IV. 1000 / 1000 100 / 100 CONT .[id number] [facility] Rx#: [id number] Oral 550 / 550 480 / 480 Output: Urine 1500 / 1500 Other: # Voids 2 5 Date of Last Bowel Movement 01/05/18 # Bowel Movements 0 0 Narrative: GENERAL: This is a well-nourished, well-developed patient, in no acute distress CARDIOVASCULAR: Normal rate and regular rhythm without murmurs, gallops, or rubs. RESPIRATORY: Good respiratory efforts. Breath sounds equal and clear to auscultation bilaterally. GASTROINTESTINAL: Abdomen soft, non-tender, non-distended. Normal active bowel sounds MUSCULOSKELETAL: Extremities without cyanosis, or edema. NEURO: Alert & Oriented x4 to person, place, time, situation. Patient is ordering and some occasional jerking movement of the right lower extremity. PSYCH: Somewhat anxious. Results - Labs CBC & Chem 7: 01/07/18 05:13 01/07/18 05:13 Laboratory Results - last 24 hr 01/05/18 01/06/18 01/06/18 23:05 13:39 20:36 WBC RBC Hgb Hct MCV MCH MCHC RDW Plt Count MPV Neut % (Auto) Lymph % (Auto) [place] % (Auto) Eos % (Auto) Baso % (Auto) Neut # (Auto) Lymph # (Auto) [place] # (Auto) Eos # (Auto) Baso # (Auto) WBC Differential Differential Comment Puncture Site Right radial Patient Temperature 98.6 O2 Saturation 95 ABG pH 7.49 H ABG pCO2 30 L ABG pO2 93 ABG HCO3 22 ABG O2 Content 22.5 H ABG Base Excess -0.9 ABG Methemoglobin 1.1 Jude Test Present Hemoglobin 16.8 H Carboxyhemoglobin 1.5 Inspired O2 21 Critical Value No Sodium Potassium Chloride Carbon Dioxide Anion Gap BUN Creatinine Estimated GFR POC Glucose 95 Random Glucose Calcium Phosphorus Magnesium MIMI Screen Neg RPR Nonreactive 01/07/18 01/07/18 01/07/18 05:13 05:13 07:50 WBC 8.3 RBC 5.30 Hgb 17.6 H D Hct 50.2 MCV 94.8 MCH 33.1 MCHC 35.0 RDW 13.3 Plt Count 156 MPV 8.5 Neut % (Auto) 69.1 Lymph % (Auto) 21.2 [place] % (Auto) 6.8 Eos % (Auto) 1.8 Baso % (Auto) 1.1 Neut # (Auto) 5.7 Lymph # (Auto) 1.8 [place] # (Auto) 0.6 Eos # (Auto) 0.1 Baso # (Auto) 0.1 WBC Differential . Differential Comment Auto diff final Puncture Site Patient Temperature O2 Saturation ABG pH ABG pCO2 ABG pO2 ABG HCO3 ABG O2 Content ABG Base Excess ABG Methemoglobin Jude Test Hemoglobin Carboxyhemoglobin Inspired O2 Critical Value Sodium 137 Potassium 3.9 Chloride 106 Carbon Dioxide 24.1 Anion Gap 7 BUN 11 Creatinine 0.91 Estimated GFR 87 L POC Glucose 95 Random Glucose 79 Calcium 9.2 D Phosphorus 3.6 Magnesium 2.4 MIMI Screen RPR - Imaging Impressions Head CT 01/07/18 00:00 CONCLUSION: 1. No acute intracranial abnormalities. . Assessment and Plan - Plan 52-year-old male with history of lupus, rheumatoid arthritis,? Dysautonomic dysfunction brought to the hospital as a stroke alert for difficulty speaking. Based on the history discussed with the patient, he reports a history of this autonomic dysfunction that was worked up by the [facility]. He reports his speech is now at baseline. He does stutter and appear generally weak. Possible CVA: S/P TPA however whole imaging studies including MRI negative for CVA. Lupus Generalized weakness s/p systemic TPA 01/05 Peripheral neuropathy -Appreciate neurology following. Trial of Decadron per neurology -Continue PT. Reported history of Parkinson's: Continue carbidopa/levodopa Anxiety: -Resume fluoxetine. Xanax at night DVT Prophylaxis: - SCDs. Overall impression: The patient appeared to have a chronic neurological disorder with exacerbation. He has had extensive workup in the past at the [facility] per his account and was diagnosed with autonomic dysfunction. He presented as a stroke alert. No stroke found on imaging. We will continue with hydration, see how he responds to Decadron. It seems that currently he is getting close to his baseline. Discharge Planning: OK to transfer to floor.
[2018-01-07 13:24] LABS: Hemoglobin A1c 5.2 % (4.3-6.0)
[2018-01-07] MEDS: hydrALAZINE HCl Inj 20 MG/ML Vial IV.PUSH PRN ×2 (18:18→20:03)
[2018-01-07 20:57] VITALS: RESP 22
[2018-01-07] MEDS ORDERED: Famotidine 20 MG Tablet PO SCH (21:00)
[2018-01-07 22:00] VITALS: BP 196/89; PULSE 100; TEMP 96.9; O2SAT 97
--- NOTE | 2018-01-07 22:29 | P.PNADD ---
Addendum to Inpatient Note Reason for Addendum: Additional Documentation Additional information: Patient complaining of severe burning pain in lower extremities but reports n/v with IV morphine, has tolerated Percocet in the past and vomited his Xanax that he took at 8:03 p.m. - nursing observed this and now patient is extremely anxious. I am reordering Xanax and ordering a one-time dose of Percocet for pain.
== END 2018-01-07 23:40 | disposition left against medical advice (07) ==
LOC: PHED 21:52 → PHEDA 23:01 → N03 01-06 02:40 → N04 01-07 20:48
PROVIDERS: ADMIT Family Medicine; ATTEND Family Medicine